=== PATIENT | female | born 1930 | race Caucasian/White ===

== ENCOUNTER 2016-11-16 07:12 | Emergency (ER) | payer MEDICARE ==
[2016-11-16] MEDS ORDERED: LIDOCAINE 5% (700 MG) TRANSDERMAL ADH..PATCH TP ONE (08:58)
--- NOTE | 2016-11-16 10:00 | ER Document Report ---
ED General - General Chief Complaint: Hip Pain Stated Complaint: FALL/HIP PAIN TRAVEL OUTSIDE OF THE [place] IN LAST 30 DAYS: No - HPI Patient complains to provider of: right hip pain Notes: Patient coming in for evaluation of right hip pain patient states she fell approximately 2-3 weeks ago increased it pain in her last to 3 days. Patient states no loss with a cane having difficulty in intubation at this time. Patient otherwise denies any other injuries. - Related Data Allergies/Adverse Reactions: Influenza Virus Vaccines [Influenza Virus Vaccine] Allergy (Intermediate, Verified 11/16/11 08:53) violently ill pneumococcal vaccine [Pneumococcal Vaccine] Allergy (Intermediate, Verified 15/09 08:53) violently ill Sulfa (Sulfonamide Antibiotics) Allergy (Intermediate, Verified 11/16/11 08:53) tound splits open Penicillins Allergy (Mild, Verified 11/16/11 08:53) Hives Past Medical History - Social History Smoking Status: Unknown if Ever Smoked Family History: Reviewed & Not Pertinent - Past Medical History Cardiac Medical History: Reports: Hx Coronary Artery Disease, Hx Hypertension Denies: Hx Atrial Fibrillation, Hx Congestive Heart Failure, Hx Heart Attack , Hx Hypercholesterolemia, Hx Peripheral Vascular Disease, Hx Heart Murmur Pulmonary Medical History: Denies: Hx Tuberculosis Renal/ Medical History: Reports: Hx Kidney Stones Musculoskeltal Medical History: Denies Hx Arthritis, Denies Hx Fibromyalgia, Denies Hx Muscular Dystrophy Traumatic Medical History: Reports: Hx Fractures - left hip x 1 yr Past Surgical History: Reports: Hx Pacemaker - Immunizations Hx Diphtheria, Pertussis, Tetanus Vaccination: Yes Review of Systems - Review of Systems Constitutional: No symptoms reported EENT: No symptoms reported Cardiovascular: No symptoms reported Respiratory: No symptoms reported Gastrointestinal: No symptoms reported Genitourinary: No symptoms reported Female Genitourinary: No symptoms reported Musculoskeletal: Other - Right hip pain Skin: No symptoms reported Hematologic/Lymphatic: No symptoms reported Neurological/Psychological: No symptoms reported Physical Exam - Vital signs Vitals: Resp 16 11/16/16 07:18 Interpretation: Normal - General General appearance: Appears well, Alert - HEENT Head: Normocephalic, Atraumatic Eyes: Normal Pupils: PERRL - Respiratory Respiratory status: No respiratory distress Chest status: Nontender Breath sounds: Normal Chest palpation: Normal - Cardiovascular Rhythm: Regular Heart sounds: Normal auscultation Murmur: No - Abdominal Inspection: Normal Distension: No distension Bowel sounds: Normal Tenderness: Nontender Organomegaly: No organomegaly - Back Back: Normal, Nontender - Extremities General upper extremity: Normal inspection, Nontender, Normal color, Normal ROM , Normal temperature General lower extremity: Normal inspection, Nontender, Normal color, Normal ROM , Normal temperature, Normal weight bearing. No: Che's sign - Neurological Neuro grossly intact: Yes Cognition: Normal Orientation: AAOx4 [place] Coma Scale Eye Opening: Spontaneous [place] Coma Scale Verbal: Oriented [place] Coma Scale Motor: Obeys Commands [place] Coma Scale Total: 15 Speech: Normal Motor strength normal: LUE, RUE, LLE, RLE Sensory: Normal - Psychological Associated symptoms: Normal affect, Normal mood - Skin Skin Temperature: Warm Skin Moisture: Dry Skin Color: Normal Course - Re-evaluation Re-evalutation: 11/16/16 15:21 X-rays negative patient was able ambulate with assistance. Will prescribe the patient a walker pain patches and Tylenol for home for pain control. Patient agrees as planned discharged home - Vital Signs Vital signs: Temp Pulse Resp BP Pulse Ox 98.0 F 70 16 158/72 H 97 11/16/16 10:13 11/16/16 10:13 11/16/16 10:13 11/16/16 10:13 11/16/16 10:13 Discharge - Discharge Clinical Impression: Right hip pain Condition: Good Disposition: HOME, SELF-CARE Instructions: Contusion ([facility]) Additional Instructions: At this time your evaluation is negative for any signs of fracture. More likely has a contusion of the right hip. We will send you home with a prescription for a walker. You may continue to take Tylenol for pain. I will also prescribe you Lidoderm patches for your pain control. Please follow-up with your primary care physician. Prescriptions: Lidocaine [Lidoderm 5% (700 mg) Transdermal Patch] 1 patch TP DAILY #30 adh..patch Walker [Ultra-Light Rollator] 1 each MC DAILY #1 each Referrals: ELO MARIN MD [Primary Care Provider] - Follow up in 3-5 days
[2016-11-16 10:32] VITALS: BP 158/72
== END 2016-11-16 10:13 | disposition home or self-care (01) ==
LOC: ER 07:12
DX: M25.551 Pain in right hip (principal); I25.10 Atherosclerotic heart disease of native coronary artery without angina pectoris; I10 Essential (primary) hypertension; Z88.2 Allergy status to sulfonamides; Z88.0 Allergy status to penicillin; Z88.7 Allergy status to serum and vaccine; Z87.442 Personal history of urinary calculi
CPT/HCPCS: 99283

== ENCOUNTER → 2016-11-26 | Outpatient (CLI) | payer MEDICARE | LOC: RAD 10:33 | PROVIDERS: ATTEND Orthopaedic Surgery | DX: T14.8 Other injury of unspecified body region (principal); M81.0 Age-related osteoporosis without current pathological fracture | CPT/HCPCS: 78306; A9503; Q9969 ==

== ENCOUNTER 2016-12-23 07:44 | Day surgery (SDC) | payer MEDICARE ==
[2016-12-23 08:44] LABS: PROTHROMBIN TIME 13.5 SEC (11.4-15.4)
[2016-12-23 08:45] LABS: PARTIAL THROMBOPLASTIN TIME 36.4 SEC (23.5-35.8)
[2016-12-23 14:41] VITALS: BP 183/71
== END 2016-12-23 14:10 | disposition home or self-care (01) ==
LOC: RAD 07:44
PROVIDERS: ATTEND Orthopaedic Surgery
PROC: B01BYZZ Fluoroscopy of Spinal Cord using Other Contrast (ICD-10-PCS; principal; 2016-12-23)
DX: M48.06 Spinal stenosis, lumbar region (principal); M43.16 Spondylolisthesis, lumbar region; Z79.01 Long term (current) use of anticoagulants; F17.210 Nicotine dependence, cigarettes, uncomplicated; Z79.82 Long term (current) use of aspirin; Z88.0 Allergy status to penicillin; Z79.899 Other long term (current) drug therapy
CPT/HCPCS: 36415; 72132; 72265; 85610; 85730

== ENCOUNTER 2017-09-03 17:54 | Inpatient (IN) | payer MEDICARE ==
[2017-09-03] MEDS ORDERED: NITROGLYCERIN/D5W 50 MG/250 ML RTUINJ IV PRN (18:04)
[2017-09-03] MEDS ORDERED: FUROSEMIDE INJ/PF 20 MG/2 ML SDV IV ONE (18:05)
[2017-09-03 18:26] LABS: PROTHROMBIN TIME 13.2 SEC (11.4-15.4)
[2017-09-03 18:27] LABS: PARTIAL THROMBOPLASTIN TIME 35.4 SEC (23.5-35.8)
[2017-09-03 18:34] LABS: ABSOLUTE BASOPHILS # (AUTO) 0.1 10^3/uL (0.0-0.2); ABSOLUTE EOSINOPHILS # (AUTO) 0.2 10^3/uL (0.0-0.6); ABSOLUTE LYMPHOCYTES (AUTO) 2.2 10^3/uL (0.5-4.7); ABSOLUTE MONOCYTES (AUTO) 1.6 10^3/uL (0.1-1.4); ABSOLUTE NEUT (AUTO) 8.8 10^3/uL (1.7-8.2); BASOPHILS % (AUTO) 0.9 % (0-2); EOSINOPHILS % (AUTO) 1.4 % (0-6); HEMATOCRIT 49.8 % (36.0-47.0); HEMOGLOBIN 16.6 g/dL (12.0-15.5); LYMPHOCYTES % (AUTO) 16.9 % (13-45); MEAN CORPUSCULAR HEMOGLOBIN 28.8 pg (27.0-33.4); MEAN CORPUSCULAR HGB CONC 33.3 g/dL (32.0-36.0); MEAN CORPUSCULAR VOLUME 87 fl (80-97); MONOCYTES % (AUTO) 12.7 % (3-13); RED BLOOD COUNT 5.76 10^6/uL (3.72-5.28); SEGMENTED NEUTROPHILS % (AUTO) 68.1 % (42-78); WHITE BLOOD COUNT 12.9 10^3/uL (4.0-10.5)
[2017-09-03 18:37] LABS: ALANINE AMINOTRANSFERASE 20 U/L (9-52); ALBUMIN 4.2 g/dL (3.5-5.0); ALKALINE PHOSPHATASE 96 U/L (38-126); ANION GAP 13 (5-19); ASPARTATE AMINO TRANSFERASE 23 U/L (14-36); BILIRUBIN,DIRECT 0.6 mg/dL (0.0-0.4); BILIRUBIN,TOTAL 0.8 mg/dL (0.2-1.3); BLOOD UREA NITROGEN 12 mg/dL (7-20); CALCIUM 9.1 mg/dL (8.4-10.2); CARBON DIOXIDE 29 mmol/L (22-30); CHLORIDE 102 mmol/L (98-107); CREATINE KINASE 42 U/L (30-135); CREATININE RESULT 0.81 mg/dL (0.52-1.25); GLUCOSE 96 mg/dL (75-110); LIPASE 16.3 U/L (23-300); POTASSIUM 3.6 mmol/L (3.6-5.0); SODIUM 143.7 mmol/L (137-145); TOTAL PROTEIN 7.8 g/dL (6.3-8.2)
[2017-09-03 18:48] LABS: TROPONIN I 0.013 ng/mL
[2017-09-03 18:56] LABS: VENOUS BLOOD BASE EXCESS 3.1 mmol/L; VENOUS BLOOD PCO2 54.4 mmHg (35-63); VENOUS BLOOD PH 7.36 (7.30-7.42)
--- NOTE | 2017-09-03 19:22 | RADIOLOGY REPORT (SQ) ---
EXAM DESCRIPTION: CHEST SINGLE VIEW COMPLETED DATE/TIME: 09/03/2017 7:12 pm REASON FOR STUDY: SOB COMPARISON: 12/13/2011 NUMBER OF VIEWS: One view. TECHNIQUE: Single frontal radiographic view of the chest acquired. LIMITATIONS: Positioning. FINDINGS: LUNGS AND PLEURA: No opacities, masses or pneumothorax. No pleural effusion. Attenuated bl ood vessels and flattened mohit-diaphragms. MEDIASTINUM AND HILAR STRUCTURES: No masses. Contour normal. HEART AND VASCULAR STRUCTURES: Heart normal in size. Normal vasculature. BONES: No acute findings. HARDWARE: Stable position of pacemaker. OTHER: No other significant finding. IMPRESSION: COPD. NO ACUTE RADIOGRAPHIC FINDING IN THE CHEST. TECHNICAL DOCUMENTATION: JOB ID: [id number] [employer]- All Rights Reserved
--- NOTE | 2017-09-03 19:25 | ER Document Report ---
ED Respiratory Problem - General Chief Complaint: Breathing Difficulty Stated Complaint: DIFFICULTY BREATHING,CONGESTION Time Seen by Provider: 09/03/17 18:03 Notes: The patient is an 87-year-old female, past medical history CHF with AICD, COPD, hypertension, chronic abdominal hernia, presents from her primary care physician 's office, Dr. Joyner, with increased work of breathing and peripheral edema. When EMS arrived, she was tripoding and satting in the low 80's. She was placed on CPAP after 2 sublingual nitros and Nitropaste were given. Patient takes 20 mg of Lasix daily, but she is having increased peripheral edema , dyspnea on exertion and orthopnea over the past several days. She is also having wheezing during this same time. Patient denies fevers, hemoptysis, back pain, chest pain, numbness, tingling, headache, nausea, vomiting or abdominal pain. TRAVEL OUTSIDE OF THE [place] IN LAST 30 DAYS: No - Related Data Allergies/Adverse Reactions: Influenza Virus Vaccines [Influenza Virus Vaccine] Allergy (Intermediate, Verified 09/03/17 18:23) violently ill pneumococcal vaccine [Pneumococcal Vaccine] Allergy (Intermediate, Verified 03/15 18:23) violently ill Sulfa (Sulfonamide Antibiotics) Allergy (Intermediate, Verified 09/03/17 18:23) tound splits open Penicillins Allergy (Mild, Verified 09/03/17 18:23) Hives Past Medical History - General Information source: Patient - Social History Smoking Status: Unknown if Ever Smoked Family History: Reviewed & Not Pertinent - Past Medical History Cardiac Medical History: Reports: Hx Coronary Artery Disease, Hx Hypertension Denies: Hx Atrial Fibrillation, Hx Congestive Heart Failure, Hx Heart Attack , Hx Hypercholesterolemia, Hx Peripheral Vascular Disease, Hx Heart Murmur Pulmonary Medical History: Denies: Hx Asthma, Hx Bronchitis, Hx COPD, Hx Pneumonia, Hx Tuberculosis Neurological Medical History: Denies: Hx Cerebrovascular Accident, Hx Seizures Renal/ Medical History: Reports: Hx Kidney Stones Musculoskeltal Medical History: Reports Hx Arthritis, Denies Hx Fibromyalgia, Denies Hx Muscular Dystrophy Traumatic Medical History: Reports: Hx Fractures - left hip x 1 yr Past Surgical History: Reports: Hx Pacemaker - Immunizations Hx Diphtheria, Pertussis, Tetanus Vaccination: Yes Review of Systems - Review of Systems Notes: REVIEW OF SYSTEMS: CONSTITUTIONAL: -fevers, -chills EENT: -eye pain, -difficulty swallowing, -nasal congestion CARDIOVASCULAR:-chest pain, -syncope. RESPIRATORY: +cough, +SOB GASTROINTESTINAL: -abdominal pain, - nausea, -vomiting, -diarrhea GENITOURINARY: -dysuria, -hematuria MUSCULOSKELETAL: -back pain, -neck pain SKIN: -rash or skin lesions. HEMATOLOGIC: -easy bruising or bleeding. LYMPHATIC: -swollen, enlarged glands. NEUROLOGICAL: -altered mental status or loss of consciousness, -headache, - neurologic symptoms PSYCHIATRIC: -anxiety, -depression. ALL OTHER SYSTEMS REVIEWED AND NEGATIVE. Physical Exam - Vital signs Vitals: Resp Pulse Ox 19 96 09/03/17 18:07 09/03/17 18:07 - Notes Notes: PHYSICAL EXAMINATION: GENERAL: Mild respiratory distress. HEAD: Atraumatic, normocephalic. EYES: Pupils equal round and reactive to light, extraocular movements intact, sclera anicteric, conjunctiva are normal. ENT: nares patent, oropharynx clear without exudates. Moist mucous membranes. NECK: Normal range of motion, supple without lymphadenopathy LUNGS: Tachypnea. Rales up to mid-lungs. Diffuse wheezing. HEART: Regular rate and rhythm without murmurs ABDOMEN: Soft, nontender, normoactive bowel sounds. No guarding, no rebound. No masses appreciated. EXTREMITIES: 3+ pitting edema in B/L legs up to mid-thighs. Chronic venous stasis changes in legs. Strong distal pulses. NEUROLOGICAL: Cranial nerves grossly intact. Normal speech, normal gait. Normal sensory and motor exams. PSYCH: Normal mood, normal affect. Course - Re-evaluation Re-evalutation: Patient seen immediately on arrival and switched from CPAP to BiPAP. She appears fluid overloaded with 3+ peripheral edema and bilateral rales on exam. She was placed on a nitro drip and given IV Lasix with improvement of her respiratory status. Pt also has diffuse wheezing, which resolved afetr Duonebs and steroids. No fevers or infiltrates on CXR to suggest pneumonia, although patient does have a leukocytosis. Patient has no chest pain and no ischemic changes on EKG. Patient requires inpatient admission for further evaluation and treatment of her CHF and COPD exacerbation. Her primary care physician is Dr. Joyner. With the son at bedside, patient confirms that she is Full Code. 09/03/17 20:[address] Moore and will admit patient to [facility] as Inpatient. Will attempt to wean patient off BiPap now that her respiratory status has improved. - Vital Signs Vital signs: Temp Pulse Resp BP Pulse Ox 14 156/105 H 96 09/03/17 19:34 09/03/17 19:34 09/03/17 19:34 - Laboratory Result Diagrams: 09/03/17 18:10 09/03/17 18:10 Laboratory results interpreted by me: 09/03/17 09/03/17 09/03/17 18:10 18:10 18:10 WBC 12.9 H RBC 5.76 H Hgb 16.6 H Hct 49.8 H Absolute Neutrophils 8.8 H Absolute Monocytes 1.6 H Direct Bilirubin 0.6 H NT-Pro-B Natriuret Pep 2030 H Lipase 16.3 L - Diagnostic Test Radiology reviewed: Image reviewed, Reports reviewed Radiology results interpreted by me: CXR: NAD. COPD changes. - EKG Interpretation by Me EKG shows normal: Sinus rhythm, Intervals, QRS Complexes, ST-T Waves Rate: Normal [place]/QRS: Right axis deviation Critical Care Note - Critical Care Note Total time excluding time spent on procedures (mins): 35 Discharge - Discharge Clinical Impression: COPD exacerbation CHF exacerbation Qualifiers: Congestive heart failure type: unspecified congestive heart failure type Qualified Code(s): I50.9 - Heart failure, unspecified Leukocytosis Qualifiers: Leukocytosis type: unspecified Qualified Code(s): D72.829 - Elevated white blood cell count, unspecified Condition: Stable Disposition: ADMITTED INPATIENT Admitting Provider: [facility] Unit Admitted: Telemetry
[2017-09-03] MEDS ORDERED: IPRATROPIUM/ALBUTEROL 0.5-2.5 MG/3 ML AMPUL NEB ONE (19:26)
[2017-09-03] MEDS ORDERED: METHYLPREDNISOLONE INJ 125 MG/2 ML SDV IV ONE (19:27)
[2017-09-03] MEDS ORDERED: ROPINIROLE HCL 0.25 MG TABLET PO PRN (20:13)
[2017-09-03] MEDS ORDERED: HYDRALAZINE HCL INJ/PF 20 MG/1 ML SDV IV PRN (20:13)
[2017-09-03] MEDS ORDERED: MAG HYDROX/AL HYDROX/SIMETH SUSP 30 ML UDCUP PO PRN (20:14)
--- NOTE | 2017-09-03 20:30 | EKG REPORT ---
SEVERITY:- ABNORMAL ECG - ATRIAL-PACED COMPLEXES MINIMAL ST DEPRESSION, LATERAL LEADS BORDERLINE PROLONGED QT INTERVAL APC : Confirmed by: Monique Dow 03-Sep-2017 20:30:01
[2017-09-03] MEDS ORDERED: DILTIAZEM HCL 60 MG TABLET PO ONE (20:42)
[2017-09-03] MEDS ORDERED: VANCOMYCIN HCL 1,000 MG in DEXTROSE 5%-WATER 250 ML IV ONE (20:55)
[2017-09-03] MEDS ORDERED: CHLORPHENIRAMINE MALEATE 4 MG TABLET PO ONE (21:00)
[2017-09-03] MEDS ORDERED: VANCOMYCIN HCL 0 MG in DEXTROSE 5%-WATER 250 ML IV NR (21:00)
[2017-09-03] MEDS ORDERED: VANCOMYCIN HCL INJ 1000 MG VIAL ONE (21:37)
[2017-09-03] MEDS ORDERED: VANCOMYCIN HCL INJ 500 MG VIAL ONE (21:37)
[2017-09-03] MEDS: HEPARIN SOD (PORCINE) 5,000 UNIT/ML 1 ML SYRINGE SUBCUT SCH (21:50)
[2017-09-03] MEDS: FLUTICASONE NASAL SPRAY 50 MCG/SPRY 120 SPRAY/16 GM NASL SCH (21:55)
[2017-09-03] MEDS: VANCOMYCIN HCL 400 MG in DEXTROSE 5%-WATER 100 ML IV SCH (21:57)
[2017-09-03] MEDS ORDERED: AZITHROMYCIN 500 MG in DEXTROSE 5%-WATER 250 ML IV SCH (22:00)
[2017-09-03] MEDS ORDERED: HEPARIN SOD (PORCINE) 5,000 UNIT/ML 1 ML SYRINGE SUBCUT SCH (22:00)
[2017-09-04 00:53] LABS: CREATINE KINASE MB 1.3 ng/mL (<4.55); TROPONIN I 0.015 ng/mL
[2017-09-04] MEDS: IPRATROPIUM/ALBUTEROL 0.5-2.5 MG/3 ML AMPUL NEB SCH ×4 (01:42→20:14)
[2017-09-04] MEDS: HEPARIN SOD (PORCINE) 5,000 UNIT/ML 1 ML SYRINGE SUBCUT SCH ×3 (05:58→21:48)
--- NOTE | 2017-09-04 06:10 | PDOC H&P ---
History of Present Illness Admission Date/PCP: 09/03/17 20:22 Patient complains of: Shortness of breath History of Present Illness: JAIR WHITE is a 87 year old female with a history of congestive heart failure with AICD, COPD, hypertension, ventral hernia, venous stasis and chronic pain. Patient presents after approximately 7 days of shortness of breath, nonproductive cough and bilateral leg edema and erythema. She denies chest pain nausea vomiting or diaphoresis. In the emergency room she is found to have uncontrolled sinus tachycardia in the 120s, crackles on lung auscultation, and right leg ulcer with erythema. She started on DuoNeb, BiPAP and IV Lasix and referred to the hospitalist for admission. Patient denies chest pain and admits feeling better on BiPAP. She is unaware of any recent change in medications. Patient does state she is essentially immobile and spends day and night in her recliner. Past Medical History Cardiac Medical History: Reports: Coronary Artery Disease, Hypertension Denies: Atrial Fibrillation, Congestive Heart Failure, Myocardial Infarction , Hyperlipidema, Peripheral Vascular Disease, Heart Murmur Pulmonary Medical History: Reports: Bronchitis, Chronic Obstructive Pulmonary Disease (COPD) Denies: Asthma, Pneumonia, Tuberculosis Neurological Medical History: Denies: Seizures Musculoskeltal Medical History: Reports: Arthritis Denies: Fibromyalgia Psychiatric Medical History: Denies: Alcohol Dependency, Substance Abuse, Tobacco Dependency Hematology: Denies: Anemia Past Surgical History Past Surgical History: Reports: Pacemaker Denies: Amputation Social History Information Source: Patient Smoking Status: Former Smoker Frequency of Alcohol Use: None Hx Recreational Drug Use: No Hx Prescription Drug Abuse: No - Advance Directive Resuscitation Status: Full Code Family History Family History: CAD, COPD Parental Family History Reviewed: Yes Children Family History Reviewed: Yes Sibling(s) Family History Reviewed.: Yes Medication/Allergy Home Medications: Gabapentin [Neurontin 100 mg Capsule] 100 mg PO Q8 09/03/17 Oxycodone HCl [Oxycodone HCl 10 MG Tablet] 10 mg PO Q6 09/03/17 Allergies/Adverse Reactions: Influenza Virus Vaccines [Influenza Virus Vaccine] Allergy (Intermediate, Verified 09/03/17 18:23) violently ill pneumococcal vaccine [Pneumococcal Vaccine] Allergy (Intermediate, Verified 03/15 18:23) violently ill Sulfa (Sulfonamide Antibiotics) Allergy (Intermediate, Verified 09/03/17 18:23) tound splits open Penicillins Allergy (Mild, Verified 09/03/17 18:23) Hives Review of Systems Constitutional: PRESENT: as per HPI, fatigue, weakness, weight gain. ABSENT: fever(s) Eyes: ABSENT: visual disturbances Ears: ABSENT: hearing changes Cardiovascular: ABSENT: chest pain, dyspnea on exertion, edema, orthropnea, palpitations Respiratory: PRESENT: as per HPI, cough, dyspnea. ABSENT: hemoptysis, sputum Gastrointestinal: ABSENT: abdominal pain, constipation, diarrhea, hematemesis, hematochezia, nausea, vomiting Genitourinary: ABSENT: dysuria, hematuria Musculoskeletal: PRESENT: muscle weakness. ABSENT: joint swelling Integumentary: PRESENT: erythema, other - Bilateral +2 edema, right leg with erythema and 1 cm ulcer to the lateral and 2 cm x 2 cm ulcer to the posterior leg. ABSENT: rash, wounds Neurological: ABSENT: abnormal gait, abnormal speech, confusion, dizziness, focal weakness, syncope Psychiatric: ABSENT: anxiety, depression, homidical ideation, suicidal ideation Endocrine: ABSENT: cold intolerance, heat intolerance, polydipsia, polyuria Hematologic/Lymphatic: ABSENT: easy bleeding, easy bruising Physical Exam Vital Signs: Temp Pulse Resp BP Pulse Ox 98.6 F 74 22 H 154/65 H 95 09/04/17 00:25 09/04/17 02:00 09/04/17 04:00 09/04/17 00:25 09/04/17 00:25 Intake & Output 09/02/17 09/03/17 09/04/17 11:59 11:59 11:59 Weight 45.35 kg General appearance: PRESENT: cooperative, disheveled, mild distress Head exam: PRESENT: atraumatic, normocephalic Eye exam: PRESENT: conjunctiva pink, EOMI, PERRLA. ABSENT: scleral icterus Ear exam: PRESENT: normal external ear exam Mouth exam: PRESENT: moist, tongue midline Neck exam: ABSENT: carotid bruit, JVD, lymphadenopathy, thyromegaly Respiratory exam: PRESENT: accessory muscle use, crackles, decreased breath sounds, prolonged expiratory phas, rales, symmetrical, tachypnea Cardiovascular exam: PRESENT: gallop, +S1, +S2, tachycardia. ABSENT: systolic murmur Pulses: PRESENT: normal dorsalis pedis pul Vascular exam: PRESENT: normal capillary refill GI/Abdominal exam: PRESENT: hypoactive bowel sounds, normal bowel sounds, soft. ABSENT: distended, guarding, mass, organolmegaly, rebound, tenderness Rectal exam: PRESENT: deferred Extremities exam: PRESENT: tenderness, +2 edema, other - Bilateral +2 edema, right leg with erythema and 1 cm ulcer to the lateral and 2 cm x 2 cm ulcer to the posterior leg Neurological exam: PRESENT: alert, awake, oriented to person, oriented to place , oriented to time, oriented to situation, CN II-XII grossly intact. ABSENT: motor sensory deficit Psychiatric exam: PRESENT: appropriate affect, normal mood. ABSENT: homicidal ideation, suicidal ideation Skin exam: PRESENT: other - Bilateral +2 edema, right leg with erythema and 1 cm ulcer to the lateral and 2 cm x 2 cm ulcer to the posterior leg Results Laboratory Results: 09/04/17 00:18 TSH 0.76 09/04/17 09/04/17 00:18 00:18 Creatine Kinase 34 CK-MB (CK-2) 1.30 Troponin I 0.015 Impressions: Chest X-Ray 09/03/17 18:03 IMPRESSION: COPD. NO ACUTE RADIOGRAPHIC FINDING IN THE CHEST. Assessment & Plan - Diagnosis (1) CHF exacerbation Qualifiers: Congestive heart failure type: unspecified congestive heart failure type Qualified Code(s): I50.9 - Heart failure, unspecified Is this a current diagnosis for this admission?: Yes Plan: Likely secondary to cellulitis and uncontrolled heart rate, telemetry admission , BiPAP, rate control and gentle diuresis. Consider 2D echo. (2) COPD exacerbation Is this a current diagnosis for this admission?: Yes Plan: Secondary #1, rate control, diuresis, BiPAP, flutter valve, albuterol and Atrovent. (3) Venous stasis Is this a current diagnosis for this admission?: Yes Plan: Elevation, DANNY stockings and diuresis. (4) Cellulitis of right leg Is this a current diagnosis for this admission?: Yes Plan: Comp gated by severe venous stasis, vancomycin follow-up CBC, blood and wound culture - Time Time Spent: 50 to 70 Minutes - Inpatient Certification Medical Necessity: Need Close Monitoring Due to Risk of Patient Decompensation
[2017-09-04 06:38] LABS: HEMATOCRIT 44.5 % (36.0-47.0); HEMOGLOBIN 14.7 g/dL (12.0-15.5); HGB HCT DIFFERENCE -0.4; MEAN CORPUSCULAR HEMOGLOBIN 28.2 pg (27.0-33.4); MEAN CORPUSCULAR VOLUME 85 fl (80-97); RED BLOOD COUNT 5.21 10^6/uL (3.72-5.28); RED CELL DISTRIBUTION WIDTH 14.3 % (11.5-14.0); WHITE BLOOD COUNT 19.9 10^3/uL (4.0-10.5)
[2017-09-04 06:46] LABS: ANION GAP 7 (5-19); BLOOD UREA NITROGEN 15 mg/dL (7-20); CALCIUM 9.3 mg/dL (8.4-10.2); CARBON DIOXIDE 30 mmol/L (22-30); CHLORIDE 103 mmol/L (98-107); CREATINE KINASE 53 U/L (30-135); CREATININE RESULT 0.74 mg/dL (0.52-1.25); GLUCOSE 203 mg/dL (75-110); POTASSIUM 3.4 mmol/L (3.6-5.0); SODIUM 140.1 mmol/L (137-145)
[2017-09-04 07:06] LABS: CREATINE KINASE MB 1.45 ng/mL (<4.55); TROPONIN I 0.026 ng/mL
[2017-09-04 07:41] LABS: BASOPHILS % (MANUAL) 0 % (0-2); EOSINOPHILS % (MANUAL) 0 % (0-6); LYMPHOCYTES % (MANUAL) 3 % (13-45); TOTAL CELLS COUNTED 100
[2017-09-04 07:42] LABS: TOXIC GRANULATION SLIGHT
[2017-09-04 07:43] LABS: ANISOCYTOSIS SLIGHT
[2017-09-04] MEDS: FLUTICASONE NASAL SPRAY 50 MCG/SPRY 120 SPRAY/16 GM NASL SCH ×2 (09:57→21:48)
[2017-09-04] MEDS: NITROGLYCERIN 5 MG (0.2 MG/HR) PATCH.TD24 TD SCH (09:57)
[2017-09-04] MEDS: POTASSIUM CHLORIDE 10 MEQ TABLET.SA PO SCH (09:58)
[2017-09-04] MEDS: DOCUSATE SODIUM 100 MG CAPSULE PO SCH (09:59)
[2017-09-04] MEDS ORDERED: FUROSEMIDE INJ/PF 40 MG/4 ML SDV IV SCH (10:00)
[2017-09-04] MEDS ORDERED: ASPIRIN 81 MG TABLET, CHEWABLE PO SCH (10:00)
[2017-09-04] MEDS: GABAPENTIN 100 MG CAPSULE PO SCH ×2 (13:45→21:48)
[2017-09-04 14:19] LABS: CREATINE KINASE MB 1.28 ng/mL (<4.55); TROPONIN I 0.027 ng/mL
--- NOTE | 2017-09-04 17:19 | PDOC PROGRESS REPORT ---
Subjective Progress Note for:: 09/04/17 Subjective:: The patient was seen this afternoon for follow-up of CHF exacerbation, COPD exacerbation and cellulitis of the bilateral lower legs. She is seen with her and younger son present shortly after leaving the room, I received a phone call from the elder son and was able to update him as well with the patient's request. The patient states that she "feels ready to go home." She tells me that her breathing has much improved, her cough is resolved, and that she feels back to herself. Per nursing, however, the patient did remain on BiPAP throughout the night and most of the day. The patient does report bilateral lower leg tenderness and increased redness as compared to yesterday. She does state that the edema has improved. The patient and family members are interested in home health services when she is ready for discharge. Both of her sons, however, feels that it is time for their parents to be admitted to an assisted living or fci facility and ask for us to assist in researching whether or not this is a viable option for her and her . Preferably they would like the their parents to be room together (the patient's is a hospice patient). They have no other questions or concerns at this time. Reason For Visit: COPD EXACERBATION, ACUTE BRONCHITIS, HEART Physical Exam Vital Signs: Temp Pulse Resp BP Pulse Ox 98.5 F 91 22 H 159/68 H 98 09/04/17 16:00 09/04/17 16:00 09/04/17 16:48 09/04/17 16:00 09/04/17 16:48 Intake & Output 09/03/17 09/04/17 09/05/17 06:59 06:59 06:59 Intake Total 240 Output Total 350 Balance -110 Weight 45.5 kg 45.5 kg General appearance: PRESENT: no acute distress, thin, well-developed, well- nourished Head exam: PRESENT: atraumatic, normocephalic Eye exam: PRESENT: conjunctiva pink, EOMI, PERRLA. ABSENT: scleral icterus Ear exam: PRESENT: normal external ear exam Mouth exam: PRESENT: moist, tongue midline Teeth exam: PRESENT: poor dentation Neck exam: ABSENT: carotid bruit, JVD, lymphadenopathy, thyromegaly Respiratory exam: PRESENT: clear to auscultation jerry, symmetrical, unlabored. ABSENT: rales, rhonchi, wheezes Cardiovascular exam: PRESENT: RRR, +S1, +S2. ABSENT: diastolic murmur, rubs, systolic murmur Pulses: PRESENT: normal dorsalis pedis pul Vascular exam: PRESENT: other - Poor capillary refill to the bilateral toes GI/Abdominal exam: PRESENT: normal bowel sounds, soft. ABSENT: distended, guarding, mass, organolmegaly, rebound, tenderness Rectal exam: PRESENT: deferred Extremities exam: PRESENT: full ROM. ABSENT: calf tenderness, clubbing, pedal edema Neurological exam: PRESENT: alert, awake, oriented to person, oriented to place , oriented to time, oriented to situation, CN II-XII grossly intact. ABSENT: motor sensory deficit Psychiatric exam: PRESENT: appropriate affect, normal mood. ABSENT: homicidal ideation, suicidal ideation Skin exam: PRESENT: dry, erythema - Bilateral erythema to the lower legs., warm , other - Chronic venous stasis changes noted to bilateral lower extremities. Stasis ulcers noted to the right lateral lower leg.. ABSENT: cyanosis, rash Results Laboratory Results: 09/04/17 06:15 09/04/17 06:15 09/04/17 09/04/17 09/04/17 00:18 06:15 06:15 WBC 19.9 H RBC 5.21 Hgb 14.7 Hct 44.5 MCV 85 MCH 28.2 MCHC 33.0 RDW 14.3 H Plt Count 285 Seg Neutrophils % Not Reportable Lymphocytes % Not Reportable Monocytes % Not Reportable Eosinophils % Not Reportable Basophils % Not Reportable Absolute Neutrophils Not Reportable Absolute Lymphocytes Not Reportable Absolute Monocytes Not Reportable Absolute Eosinophils Not Reportable Absolute Basophils Not Reportable Sodium 140.1 Potassium 3.4 L Chloride 103 Carbon Dioxide 30 Anion Gap 7 BUN 15 Creatinine 0.74 Est GFR ( Amer) > 60 Est GFR (Non-Af Amer) > 60 Glucose 203 H Calcium 9.3 TSH 0.76 09/04/17 09/04/17 09/04/17 00:18 00:18 06:15 Creatine Kinase 34 53 CK-MB (CK-2) 1.30 Troponin I 0.015 09/04/17 09/04/17 09/04/17 06:15 13:00 13:00 Creatine Kinase 57 CK-MB (CK-2) 1.45 1.28 Troponin I 0.026 0.027 Impressions: Chest X-Ray 09/03/17 18:03 IMPRESSION: COPD. NO ACUTE RADIOGRAPHIC FINDING IN THE CHEST. Assessment & Plan - Diagnosis (1) CHF exacerbation Qualifiers: Congestive heart failure type: unspecified congestive heart failure type Qualified Code(s): I50.9 - Heart failure, unspecified Is this a current diagnosis for this admission?: Yes Plan: Improved. The patient was placed on BiPAP overnight and through most of the morning with improvement in respiratory function. Her tachycardia has resolved, and her heart rate is now appropriate at 91. She is maintaining oxygen saturations on 3 L of supplemental oxygen via nasal cannula. Between the emergency department and morning medication administrations, the patient has received 60 mg of IV Lasix and now appears to be well diuresed. Will discontinue IV furosemide at this time and continue to monitor daily weights. May use BiPAP nightly and as needed. The supplemental oxygen as needed to keep O2 sats greater than 88% Echocardiogram has been ordered and is pending at this time. (2) COPD exacerbation Is this a current diagnosis for this admission?: Yes Plan: Secondary to #1. Patient's respiratory status has improved dramatically with diuresis, BiPAP, albuterol and Atrovent. She is currently maintaining oxygen saturations on supplemental oxygen via nasal cannula. She is fully conversational. She did receive 1 dose of Solu-Medrol 125 mg IV while in the emergency department. She is currently receiving vancomycin for treatment of cellulitis. Will hold on additional steroids and antibiotics at this time as the patient has shown significant improvement with more conservative measures. (3) Bilateral cellulitis of lower leg Is this a current diagnosis for this admission?: Yes Plan: Complicated by severe venous stasis. WBCs are elevated to 10.9 today, which may be in part due to Solu-Medrol last night. Blood and wound cultures are pending. We will continue IV vancomycin for coverage of MRSA and narrow antibiotics as cultures result. (4) Leukocytosis Qualifiers: Leukocytosis type: unspecified Qualified Code(s): D72.829 - Elevated white blood cell count, unspecified Plan: WBCs elevated to 19.9 today from 12.9. This may be in part due to having received IV Solu-Medrol while in the emergency department last night. Likely, the patient appears to be improving. We will continue with IV antibiotics as above and trend CBC. (5) Venous stasis Is this a current diagnosis for this admission?: Yes Plan: Elevation and DANNY stockings. Anticipate slight improvement with resolution of CHF exacerbation. Chronic in nature, patient not likely to have meaningful benefit from vascular referral. (6) Debility Is this a current diagnosis for this admission?: Yes Plan: The patient is a frail appearing 87-year-old with comorbid conditions. She currently lives at home with her who is on hospice. Will ask the shutdown planner to assist in determining if placement would be available with an opportunity for her to join her in the same facility. - Time Time Spent with patient: 25-34 minutes Medications reviewed and adjusted accordingly: Yes - Inpatient Certification Based on my medical assessment, after consideration of the patient's comorbidities, presenting symptoms, or acuity I expect that the services needed warrant INPATIENT care.: Yes I certify that my determination is in accordance with my understanding of Medicare's requirements for reasonable and necessary INPATIENT services [42 CFR 412.3e].: Yes Medical Necessity: Significant Comorbidiites Make Outpatient Treatment Too Risky , Need Close Monitoring Due to Risk of Patient Decompensation
[2017-09-04] MEDS: VANCOMYCIN HCL 400 MG in DEXTROSE 5%-WATER 100 ML IV SCH (21:48)
[2017-09-04] MEDS: OXYCODONE HCL IR 5 MG TABLET PO PRN (21:49)
[2017-09-04] MEDS: ENALAPRILAT DIHYDRATE INJ/PF 1.25 MG/1 ML SDV IV PRN (23:14)
[2017-09-05] MEDS: IPRATROPIUM/ALBUTEROL 0.5-2.5 MG/3 ML AMPUL NEB SCH ×5 (02:41→23:59)
[2017-09-05] MEDS: OXYCODONE HCL IR 5 MG TABLET PO PRN ×4 (04:20→22:16)
[2017-09-05] MEDS: HEPARIN SOD (PORCINE) 5,000 UNIT/ML 1 ML SYRINGE SUBCUT SCH ×3 (04:44→22:05)
[2017-09-05] MEDS ORDERED: LACTULOSE SYRUP 20 GM/30 ML UDCUP PO ONE (04:50)
[2017-09-05] MEDS: GABAPENTIN 100 MG CAPSULE PO SCH ×3 (05:17→17:56)
[2017-09-05] MEDS: KETOROLAC TROMETHAMINE INJ/PF 30 MG/1 ML SDV IV PRN ×2 (05:18→18:13)
[2017-09-05] MEDS: ENALAPRILAT DIHYDRATE INJ/PF 1.25 MG/1 ML SDV IV PRN (08:23)
[2017-09-05] MEDS: ACETAMINOPHEN 325 MG TABLET PO PRN ×2 (08:23→22:16)
[2017-09-05 09:35] LABS: ABSOLUTE BASOPHILS # (AUTO) 0.1 10^3/uL (0.0-0.2); ABSOLUTE LYMPHOCYTES (AUTO) 2.1 10^3/uL (0.5-4.7); ABSOLUTE MONOCYTES (AUTO) 1.9 10^3/uL (0.1-1.4); ABSOLUTE NEUT (AUTO) 14.4 10^3/uL (1.7-8.2); BASOPHILS % (AUTO) 0.7 % (0-2); HEMATOCRIT 45.4 % (36.0-47.0); HEMOGLOBIN 15.2 g/dL (12.0-15.5); HGB HCT DIFFERENCE 0.2; LYMPHOCYTES % (AUTO) 11.1 % (13-45); MEAN CORPUSCULAR HEMOGLOBIN 28.7 pg (27.0-33.4); MEAN CORPUSCULAR HGB CONC 33.4 g/dL (32.0-36.0); MEAN CORPUSCULAR VOLUME 86 fl (80-97); MONOCYTES % (AUTO) 10.4 % (3-13); RED BLOOD COUNT 5.28 10^6/uL (3.72-5.28); RED CELL DISTRIBUTION WIDTH 14.4 % (11.5-14.0); SEGMENTED NEUTROPHILS % (AUTO) 77.8 % (42-78); WHITE BLOOD COUNT 18.5 10^3/uL (4.0-10.5)
[2017-09-05 09:49] LABS: ANION GAP 12 (5-19); BLOOD UREA NITROGEN 12 mg/dL (7-20); CALCIUM 8.7 mg/dL (8.4-10.2); CARBON DIOXIDE 28 mmol/L (22-30); CHLORIDE 102 mmol/L (98-107); CREATININE RESULT 0.64 mg/dL (0.52-1.25); GLUCOSE 131 mg/dL (75-110); SODIUM 142.1 mmol/L (137-145)
[2017-09-05] MEDS: ASPIRIN 81 MG TABLET, CHEWABLE PO SCH (10:12)
[2017-09-05] MEDS: POTASSIUM CHLORIDE 10 MEQ TABLET.SA PO SCH (10:12)
[2017-09-05] MEDS: FLUTICASONE NASAL SPRAY 50 MCG/SPRY 120 SPRAY/16 GM NASL SCH ×2 (10:13→22:16)
[2017-09-05] MEDS: NITROGLYCERIN 5 MG (0.2 MG/HR) PATCH.TD24 TD SCH (10:14)
[2017-09-05] MEDS: DOCUSATE SODIUM 100 MG CAPSULE PO SCH (10:17)
[2017-09-05] MEDS: LOSARTAN POTASSIUM 25 MG TABLET PO SCH (11:00)
--- NOTE | 2017-09-05 12:00 | XCELERA REPORT ---
[address] [address] Transthoracic Echocardiogram Report Name: JAIR WHITE Age: 87 yrs Gender: Female : 1930 Patient Status: Inpatient Patient Location: [address] [place], [place] [address] Study Date: 09/04/2017 09:17 AM Height: 59 in Weight: 100 lb BSA: 1.4 m2 Procedure: A two-dimensional transthoracic echocardiogram with color flow and Doppler was performed. Study Quality: Fair. Reason For Study: chf History: CHF. Ordering Physician: NGOZI PADILLA Performed By: Mell Harris Interpretation Summary The left ventricle is normal in size. There is normal left ventricular wall thickness. LV EF is > than 60% Left ventricular systolic function is normal. Doppler measurements suggest impaired left ventricular relaxation, which is associated with grade I/IV or mild diastolic dysfunction The left ventricular wall motion is normal. There is no thrombus. There is no ventricular septal defect visualized. The right ventricle is mildly dilated. The right ventricular systolic function is normal. The right atrium is normal. The left atrial size is normal. The interatrial septum is intact with no evidence for an atrial septal defect. There is no evidence of mitral valve prolapse. There is no vegetation seen on the mitral valve. There is no mitral valve stenosis. There is a trace amount of mitral regurgitation There is no aortic valvular vegetation. There is Aortic Sclerosis without stenosis. There is no LVOT obstruction. No aortic regurgitation is present. There is no tricuspid stenosis. There is a mild amount of tricuspid regurgitation RVSP is 26 to 31 mm of Hg , hence no significant pulmonary hypertension. There is no pulmonic valvular stenosis. There is no pulmonic valvular regurgitation. The aortic root is normal size. The inferior vena cava appeared normal and decreased > 50% with respiration (RAP 5-10 mmHg) There is no pericardial effusion. MMode/2D Measurements & Calculations RVDd: 3.0 cm LVIDd: 3.3 cm FS: 53.4 % Ao root diam: 2.7 cm IVSd: 1.4 cm LVIDs: 1.5 cm EDV(Teich): 42.9 ml LVPWd: 1.1 cm ESV(Teich): 6.3 ml Ao root area: 5.9 cm2 EF(Teich): 85.4 % LA dimension: 2.6 cm LVOT diam: 2.1 cm LVOT area: 3.5 cm2 Doppler Measurements & Calculations MV E max tera: MV P1/2t max tera: Ao V2 max: LV V1 max P.1 cm/sec 66.1 cm/sec 186.2 cm/sec 9.4 mmHg MV A max tera: MV P1/2t: 59.4 msec Ao max PG: LV V1 max: 129.8 cm/sec MVA(P1/2t): 3.7 cm2 13.9 mmHg 153.5 cm/sec MV E/A: 0.51 MV dec slope: DEMETRIO(V,D): 2.8 cm2 326.3 cm/sec2 PA V2 max: TR max tera: 131.3 cm/sec 226.9 cm/sec PA max P.9 mmHgTR max P.6 mmHg Left Ventricle The left ventricle is normal in size. There is normal left ventricular wall thickness. LV EF is > than 60%. Left ventricular systolic function is normal. Doppler measurements suggest impaired left ventricular relaxation, which is associated with grade I/IV or mild diastolic dysfunction. The left ventricular wall motion is normal. There is no thrombus. There is no ventricular septal defect visualized. Right Ventricle The right ventricle is mildly dilated. The right ventricular systolic function is normal. Atria The right atrium is normal. The left atrial size is normal. The interatrial septum is intact with no evidence for an atrial septal defect. Mitral Valve There is mild mitral annular calcification. There is no evidence of mitral valve prolapse. There is no vegetation seen on the mitral valve. There is no mitral valve stenosis. There is a trace amount of mitral regurgitation. Aortic Valve There is no aortic valvular vegetation. There is Aortic Sclerosis without stenosis. There is no LVOT obstruction. No aortic regurgitation is present. Tricuspid Valve There is no tricuspid stenosis. There is a mild amount of tricuspid regurgitation. RVSP is 26 to 31 mm of Hg , hence no significant pulmonary hypertension. Pulmonic Valve There is no pulmonic valvular stenosis. There is no pulmonic valvular regurgitation. Great Vessels The aortic root is normal size. The inferior vena cava appeared normal and decreased > 50% with respiration (RAP 5-10 mmHg). Effusions There is no pericardial effusion. : NGOZI PADILLA > Danii Thompson
--- NOTE | 2017-09-05 14:17 | PDOC PROGRESS REPORT ---
Subjective Progress Note for:: 09/05/17 Subjective:: The patient was seen this morning for follow-up of CHF exacerbation, COPD exacerbation and cellulitis of the bilateral lower legs. Upon entering the room , the patient is found sleeping. She wakes easily with name call and gentle shake, however, falls quickly back to sleep. She does briefly tell me that her breathing is "fine" and denies chest pain, palpitations, dyspnea, orthopnea, and cough. She expresses no questions or concerns. Nursing does report that the patient has called out several times to report bilateral foot pain, especially of her toes. Reason For Visit: COPD EXACERBATION, ACUTE BRONCHITIS, HEART Physical Exam Vital Signs: Temp Pulse Resp BP Pulse Ox 98.0 F 66 18 155/55 H 97 09/05/17 11:44 09/05/17 11:44 09/05/17 11:44 09/05/17 11:44 09/05/17 11:44 Intake & Output 09/04/17 09/05/17 09/06/17 06:59 06:59 06:59 Intake Total 240 849 Output Total 350 500 Balance -110 349 Weight 45.5 kg 45.5 kg General appearance: PRESENT: no acute distress, disheveled, hard of hearing, thin, well-developed Head exam: PRESENT: atraumatic, normocephalic Eye exam: PRESENT: conjunctiva pink, EOMI, PERRLA. ABSENT: scleral icterus Ear exam: PRESENT: normal external ear exam Mouth exam: PRESENT: moist, tongue midline Teeth exam: PRESENT: poor dentation Neck exam: ABSENT: carotid bruit, JVD, lymphadenopathy, thyromegaly Respiratory exam: PRESENT: clear to auscultation jerry, symmetrical, unlabored, other - Supplemental oxygen 2lpm via NC. ABSENT: rales, rhonchi, wheezes Cardiovascular exam: PRESENT: RRR. ABSENT: diastolic murmur, rubs, systolic murmur Pulses: PRESENT: normal dorsalis pedis pul Vascular exam: ABSENT: normal capillary refill - Delayed capillary refill bilateral feet GI/Abdominal exam: PRESENT: normal bowel sounds, soft. ABSENT: distended, guarding, mass, organolmegaly, rebound, tenderness Rectal exam: PRESENT: deferred Extremities exam: PRESENT: full ROM. ABSENT: calf tenderness, clubbing, pedal edema Neurological exam: PRESENT: alert, awake, oriented to person, oriented to place , oriented to time, oriented to situation, CN II-XII grossly intact. ABSENT: motor sensory deficit Psychiatric exam: PRESENT: appropriate affect, normal mood. ABSENT: homicidal ideation, suicidal ideation Skin exam: PRESENT: dry, warm. ABSENT: cyanosis, erythema - BLE, intact - Venous stasis ulcers to Rt lateral lower extremity, rash Results Laboratory Results: 09/05/17 09:25 09/05/17 09:25 09/05/17 09/05/17 09:25 09:25 WBC 18.5 H RBC 5.28 Hgb 15.2 Hct 45.4 MCV 86 MCH 28.7 MCHC 33.4 RDW 14.4 H Plt Count 336 Seg Neutrophils % 77.8 Lymphocytes % 11.1 L Monocytes % 10.4 Eosinophils % 0.0 Basophils % 0.7 Absolute Neutrophils 14.4 H Absolute Lymphocytes 2.1 Absolute Monocytes 1.9 H Absolute Eosinophils 0.0 Absolute Basophils 0.1 Sodium 142.1 Potassium 4.0 Chloride 102 Carbon Dioxide 28 Anion Gap 12 BUN 12 Creatinine 0.64 Est GFR ( Amer) > 60 Est GFR (Non-Af Amer) > 60 Glucose 131 H Calcium 8.7 09/04/17 09/04/17 09/04/17 00:18 00:18 06:15 Creatine Kinase 34 53 CK-MB (CK-2) 1.30 Troponin I 0.015 09/04/17 09/04/17 09/04/17 06:15 13:00 13:00 Creatine Kinase 57 CK-MB (CK-2) 1.45 1.28 Troponin I 0.026 0.027 Impressions: Chest X-Ray 09/03/17 18:03 IMPRESSION: COPD. NO ACUTE RADIOGRAPHIC FINDING IN THE CHEST. Assessment & Plan - Diagnosis (1) CHF exacerbation Qualifiers: Congestive heart failure type: unspecified congestive heart failure type Qualified Code(s): I50.9 - Heart failure, unspecified Is this a current diagnosis for this admission?: Yes Plan: Improved. The patient initially was placed on BiPAP and has been successfully weaned to supplemental oxygen via nasal cannula at 2 L/min. Symptoms have improved, the patient now maintaining oxygen saturations on supplemental oxygen and denies dyspnea and orthopnea. Furosemide was discontinued yesterday secondary to volume contraction. Daily weights are stable. May use BiPAP nightly and as needed. Use supplemental oxygen as needed to keep O2 sats greater than 88% Echocardiogram demonstrated an LVEF greater than 60% with mild diastolic dysfunction. (2) COPD exacerbation Is this a current diagnosis for this admission?: Yes Plan: Patient's respiratory status has improved dramatically with diuresis, BiPAP, albuterol and Atrovent. She is currently maintaining oxygen saturations on supplemental oxygen via nasal cannula. She did receive 1 dose of Solu-Medrol 125 mg IV while in the emergency department. She is currently receiving vancomycin for treatment of cellulitis. Will hold on additional steroids and antibiotics at this time as the patient has shown significant improvement with more conservative measures. We will reduce frequency of DuoNeb's today. (3) Bilateral cellulitis of lower leg Is this a current diagnosis for this admission?: Yes Plan: Slightly improved appearance today. Complicated by severe venous stasis. WBCs with slight downward trend today (12.9--> 19.9--> 18.5). Leukocytosis may be in part due to IV Solu-Medrol received on admission. Blood cultures: No growth at 24 hrs. We will continue IV vancomycin for coverage of MRSA and narrow antibiotics as cultures result. (4) Leukocytosis Qualifiers: Leukocytosis type: unspecified Qualified Code(s): D72.829 - Elevated white blood cell count, unspecified Plan: Slight downward trend in WBCs today (12.9--> 19.9--> 18.5). Elevation may be in part due to having received IV Solu-Medrol while in the emergency department. We will continue with IV antibiotics as above and trend CBC. (5) Venous stasis Is this a current diagnosis for this admission?: Yes Plan: Elevation and DANNY stockings. Anticipate slight improvement with resolution of CHF exacerbation. Chronic in nature, patient not likely to have meaningful benefit from vascular referral. Strongly recommend smoking cessation. (6) Debility Is this a current diagnosis for this admission?: Yes Plan: The patient is a frail appearing 87-year-old with comorbid conditions. She currently lives at home with her who is on hospice. sr. merchandise planner met with the patient today who is agreeable to SNF for short- term rehab upon discharge. (7) Tobacco dependence Is this a current diagnosis for this admission?: Yes Plan: The patient is nightly and every day tobacco user. She states that she has been smoking "forever" and is unable to elaborate further. Counseling on smoking cessation provided. Nicotine replacement was offered and declined at this time. - Time Time Spent with patient: 15-24 minutes Medications reviewed and adjusted accordingly: Yes Anticipated discharge: SNF - Inpatient Certification Based on my medical assessment, after consideration of the patient's comorbidities, presenting symptoms, or acuity I expect that the services needed warrant INPATIENT care.: Yes I certify that my determination is in accordance with my understanding of Medicare's requirements for reasonable and necessary INPATIENT services [42 CFR 412.3e].: Yes Medical Necessity: Need Close Monitoring Due to Risk of Patient Decompensation, Need for IV Antibiotics
--- NOTE | 2017-09-05 15:44 | Palliative Consultation Report ---
Consultation From:: [facility] - [facility] HPI: Appreciate consult request for this 87 year old female who has been admitted with CHF and COPD exacerbations. SHe is much better than on arrival and says she is breathing better now. She speaks clearly, but some of what she says is a little confused. Mrs. Chakraborty cares for her at home, He is under hospice care and the hospice nurse had commented that Mrs. Chakraborty has looked ill for some time at home but would not go to doctor. Patient states her son lives with them and is caring for her while she is here. Patient wonders why she has information related to CHF on her bedside table from hospital. She said she has never been told that she has CHF and is concerned about that. She says she also doesnt think she has any lung problem and she does not use oxygen at home. She denies having any trouble breathing and doesn't remember being short of breath at home. Mrs. Chakraborty tells me that she is going to Pulmonary rehab when she leaves here. SHe says she is going to [facility] after discharge from here for this rehab. She also says she wants to go home as soon as she can from here because she has to cre for her . She denies pain except when lower right leg is touched or moved. She says she can walk, but then she cannot move her legs in the bed without assistance and says the right leg is very painful. I did talk with her about advance directives. She says she does not want to be on any machines but she would want CPR if needed. I tried to explain about the CPR, but I could see she was not grasping what I was talking about and I do not feel comfortable in requesting DNR order for her at this point because I am not sure she understood any of our conversation. Onset: Last week Onset/Duration: Gradual Quality of Pain: Achy, Cramping Severity: Mild Exacerbated by: Supine, Standing, Movement, Walking Relieved by: Remaining still Past Medical History(Consults) - General Information Source: Patient, [facility] Records Home Medications: Gabapentin [Neurontin 100 mg Capsule] 100 mg PO Q8 09/03/17 Oxycodone HCl [Oxycodone HCl 10 MG Tablet] 10 mg PO Q6 09/03/17 Allergies/Adverse Reactions: Influenza Virus Vaccines [Influenza Virus Vaccine] Allergy (Intermediate, Verified 09/03/17 18:23) violently ill pneumococcal vaccine [Pneumococcal Vaccine] Allergy (Intermediate, Verified 03/15 18:23) violently ill Sulfa (Sulfonamide Antibiotics) Allergy (Intermediate, Verified 09/03/17 18:23) tound splits open Penicillins Allergy (Mild, Verified 09/03/17 18:23) Hives - Social History Lives with: Family Family History: CAD, COPD Parental Family History Reviewed: No Children Family History Reviewed: No Sibling(s) Family History Reviewed.: No Smoking Status: Former Smoker Cigarettes Packs Per Day: 0.5 Frequency of Alcohol Use: None Hx Recreational Drug Use: No Hx Prescription Drug Abuse: No - Past Medical History Cardiac Medical History: Reports: Hx Coronary Artery Disease, Hx Hypertension Denies: Hx Atrial Fibrillation, Hx Congestive Heart Failure, Hx Heart Attack , Hx Hypercholesterolemia, Hx Peripheral Vascular Disease, Hx Heart Murmur Pulmonary Medical History: Reports: Hx Bronchitis, Hx COPD Denies: Hx Asthma, Hx Pneumonia, Hx Tuberculosis Neurological Medical History: Denies: Hx Cerebrovascular Accident, Hx Seizures Renal/ Medical History: Reports: Hx Kidney Stones. Denies: Hx Peritoneal Dialysis Musculoskeltal Medical History: Reports Hx Arthritis, Denies Hx Fibromyalgia, Denies Hx Muscular Dystrophy Psychiatric Medical History: Reports: Hx Anxiety Traumatic Medical History: Reports: Hx Fractures - left hip x 1 yr Hematology: Denies: Anemia - Surgical History Past Surgical History: Reports: Hx Pacemaker Review of systems Constitutional: Weakness, Recent illness Cardiovascular: Dyspnea, Edema Respiratory: Cough, Hurts to breath Skin: Other - cellulitis right lower leg Ojective:Exam Vital Signs: Temp Pulse Resp BP Pulse Ox 98.0 F 66 18 155/55 H 97 09/05/17 11:44 09/05/17 11:44 09/05/17 11:44 09/05/17 11:44 09/05/17 11:44 Intake & Output 09/04/17 09/05/17 09/06/17 06:59 06:59 06:59 Intake Total 240 849 Output Total 350 500 Balance -110 349 Weight 45.5 kg 45.5 kg - General General Appearance: Alert, Anxious Note:: Awake, alert, talkative. Anxious to go home. No dyspnea with nasal cannula Oxygen at present BS Clear. Legs very dry and no edema but painful when touched, especially right lower hleg. Patient could not reposition them herself on pillow. - Neck Neck: Normal - Respiratory Respiratory Status: No respiratory distress - Cardiovascular Rhythm: Regular - Extremities Upper extremity: Tender Lower extremities: Tender Objective-Diagnostic Laboratory: 09/05/17 09:25 09/05/17 09:25 09/05/17 09/05/17 09:25 09:25 WBC 18.5 H RBC 5.28 Hgb 15.2 Hct 45.4 MCV 86 MCH 28.7 MCHC 33.4 RDW 14.4 H Plt Count 336 Seg Neutrophils % 77.8 Lymphocytes % 11.1 L Monocytes % 10.4 Eosinophils % 0.0 Basophils % 0.7 Absolute Neutrophils 14.4 H Absolute Lymphocytes 2.1 Absolute Monocytes 1.9 H Absolute Eosinophils 0.0 Absolute Basophils 0.1 Sodium 142.1 Potassium 4.0 Chloride 102 Carbon Dioxide 28 Anion Gap 12 BUN 12 Creatinine 0.64 Est GFR ( Amer) > 60 Est GFR (Non-Af Amer) > 60 Glucose 131 H Calcium 8.7 09/04/17 09/04/17 09/04/17 00:18 00:18 06:15 Creatine Kinase 34 53 CK-MB (CK-2) 1.30 Troponin I 0.015 09/04/17 09/04/17 09/04/17 06:15 13:00 13:00 Creatine Kinase 57 CK-MB (CK-2) 1.45 1.28 Troponin I 0.026 0.027 Plan and Recommendation Plan and Recommendation: Will follow next week unless she has transferred to [facility] as she describes. Patient is not sure about advance directives. She said she did not want to be put on ventilator and yet she probably would want CPR. I will wait until she has more clear ability to make these decisions. Will follow. No acute needs at present. She is somewhat confused about her CHF diagnosis as she says she has never had heart or lung problems in the past. - Time Spent with Patient Time spent with patient: 15 to 30 Minutes
[2017-09-05] MEDS: HYDRALAZINE HCL INJ/PF 20 MG/1 ML SDV IV PRN (16:23)
[2017-09-05] MEDS ORDERED: GABAPENTIN 300 MG CAPSULE PO SCH (22:00)
[2017-09-05] MEDS: VANCOMYCIN HCL 500 MG in DEXTROSE 5%-WATER 100 ML IV SCH (22:16)
[2017-09-06] MEDS: KETOROLAC TROMETHAMINE INJ/PF 30 MG/1 ML SDV IV PRN ×3 (00:19→22:06)
[2017-09-06] MEDS: ENALAPRILAT DIHYDRATE INJ/PF 1.25 MG/1 ML SDV IV PRN ×2 (00:46→19:08)
[2017-09-06] MEDS: HYDRALAZINE HCL INJ/PF 20 MG/1 ML SDV IV PRN (01:33)
[2017-09-06] MEDS: OXYCODONE HCL IR 5 MG TABLET PO PRN ×3 (04:38→17:34)
[2017-09-06 04:40] LABS: HEMATOCRIT 45.4 % (36.0-47.0); HEMOGLOBIN 14.9 g/dL (12.0-15.5); HGB HCT DIFFERENCE -0.7; MEAN CORPUSCULAR HEMOGLOBIN 28.2 pg (27.0-33.4); MEAN CORPUSCULAR HGB CONC 32.8 g/dL (32.0-36.0); MEAN CORPUSCULAR VOLUME 86 fl (80-97); RED BLOOD COUNT 5.28 10^6/uL (3.72-5.28); RED CELL DISTRIBUTION WIDTH 14.2 % (11.5-14.0); WHITE BLOOD COUNT 12.7 10^3/uL (4.0-10.5)
[2017-09-06 04:55] LABS: ANION GAP 9 (5-19); BLOOD UREA NITROGEN 15 mg/dL (7-20); CALCIUM 8.7 mg/dL (8.4-10.2); CARBON DIOXIDE 29 mmol/L (22-30); CHLORIDE 102 mmol/L (98-107); CREATININE RESULT 0.76 mg/dL (0.52-1.25); GLUCOSE 95 mg/dL (75-110); POTASSIUM 3.9 mmol/L (3.6-5.0); SODIUM 140.1 mmol/L (137-145)
[2017-09-06] MEDS: HEPARIN SOD (PORCINE) 5,000 UNIT/ML 1 ML SYRINGE SUBCUT SCH ×3 (05:07→22:05)
[2017-09-06] MEDS: IPRATROPIUM/ALBUTEROL 0.5-2.5 MG/3 ML AMPUL NEB SCH (07:40)
[2017-09-06] MEDS: DOCUSATE SODIUM 100 MG CAPSULE PO SCH (10:57)
[2017-09-06] MEDS: LOSARTAN POTASSIUM 25 MG TABLET PO SCH (10:57)
[2017-09-06] MEDS: CARVEDILOL 3.125 MG TABLET PO SCH ×2 (10:58→22:06)
[2017-09-06] MEDS: ASPIRIN 81 MG TABLET, CHEWABLE PO SCH (10:58)
[2017-09-06] MEDS: FLUTICASONE NASAL SPRAY 50 MCG/SPRY 120 SPRAY/16 GM NASL SCH ×2 (10:58→22:06)
[2017-09-06] MEDS: POTASSIUM CHLORIDE 10 MEQ TABLET.SA PO SCH (10:58)
[2017-09-06] MEDS: NITROGLYCERIN 5 MG (0.2 MG/HR) PATCH.TD24 TD SCH (10:59)
[2017-09-06] MEDS ORDERED: FUROSEMIDE 20 MG TABLET PO ONE (11:30)
[2017-09-06] MEDS ORDERED: LIDOCAINE 5% (700 MG) TRANSDERMAL ADH..PATCH TP ONE (12:00)
[2017-09-06] MEDS ORDERED: IPRATROPIUM/ALBUTEROL 0.5-2.5 MG/3 ML AMPUL NEB PRN (13:15)
--- NOTE | 2017-09-06 13:20 | PDOC PROGRESS REPORT ---
Subjective Progress Note for:: 09/06/17 Subjective:: The patient was seen this morning for follow-up of CHF exacerbation, COPD exacerbation and cellulitis of the bilateral lower legs. She is found resting in bed comfortably with her daughter, Janet perez), present. The patient reports continued bilateral lower leg pain especially to bilateral feet. She does note that her pain is improved slightly as compared to yesterday. She reports that her dyspnea, orthopnea and cough have all improved. She did not require BiPAP overnight and is currently on supplemental oxygen at 2 L via nasal cannula. The patient and daughter express a desire to be discharged to [facility] for short-term rehab when she is stable. We also discussed the patient's code status. The patient very clearly expressed a desire to be a DNR/DNI, stating that she would not want aggressive measures to be taken. The daughter, Janet, stated to me that she was relieved to hear that her mother had come to this decision. They have no other questions or concerns today. Reason For Visit: COPD EXACERBATION, ACUTE BRONCHITIS, HEART Physical Exam Vital Signs: Temp Pulse Resp BP Pulse Ox 98.2 F 75 16 168/78 H 95 09/06/17 11:33 09/06/17 11:33 09/06/17 11:33 09/06/17 11:33 09/06/17 11:33 Intake & Output 09/05/17 09/06/17 09/07/17 06:59 06:59 06:59 Intake Total 849 1576 Output Total 500 Balance 349 1576 Weight 45.5 kg 47.8 kg General appearance: PRESENT: no acute distress, well-developed, well-nourished, other - frail Head exam: PRESENT: atraumatic, normocephalic Eye exam: PRESENT: conjunctiva pink, EOMI, PERRLA. ABSENT: scleral icterus Ear exam: PRESENT: normal external ear exam Mouth exam: PRESENT: moist, tongue midline Teeth exam: PRESENT: poor dentation Neck exam: ABSENT: carotid bruit, JVD, lymphadenopathy, thyromegaly Respiratory exam: PRESENT: clear to auscultation jerry, symmetrical, unlabored. ABSENT: rales, rhonchi, wheezes Cardiovascular exam: PRESENT: RRR, +S1, +S2. ABSENT: diastolic murmur, rubs, systolic murmur Pulses: PRESENT: normal dorsalis pedis pul Vascular exam: PRESENT: normal capillary refill GI/Abdominal exam: PRESENT: normal bowel sounds, soft. ABSENT: distended, guarding, mass, organolmegaly, rebound, tenderness Rectal exam: PRESENT: deferred Extremities exam: PRESENT: full ROM. ABSENT: calf tenderness, clubbing, pedal edema Musculoskeletal exam: PRESENT: tenderness Neurological exam: PRESENT: alert, awake, oriented to person, oriented to place , oriented to time, oriented to situation, CN II-XII grossly intact. ABSENT: motor sensory deficit Psychiatric exam: PRESENT: appropriate affect, normal mood, other - appropriately tearful. ABSENT: homicidal ideation, suicidal ideation Skin exam: PRESENT: dry, erythema - BLE; improved from yesterday, warm. ABSENT : cyanosis, intact - Venous stasis ulcers to Rt lateral lower extremity., rash Results Laboratory Results: 09/06/17 04:11 09/06/17 04:11 09/06/17 09/06/17 04:11 04:11 WBC 12.7 H RBC 5.28 Hgb 14.9 Hct 45.4 MCV 86 MCH 28.2 MCHC 32.8 RDW 14.2 H Plt Count 321 Sodium 140.1 Potassium 3.9 Chloride 102 Carbon Dioxide 29 Anion Gap 9 BUN 15 Creatinine 0.76 Est GFR ( Amer) > 60 Est GFR (Non-Af Amer) > 60 Glucose 95 Calcium 8.7 09/04/17 09/04/17 09/04/17 00:18 00:18 06:15 Creatine Kinase 34 53 CK-MB (CK-2) 1.30 Troponin I 0.015 09/04/17 09/04/17 09/04/17 06:15 13:00 13:00 Creatine Kinase 57 CK-MB (CK-2) 1.45 1.28 Troponin I 0.026 0.027 Impressions: Chest X-Ray 09/03/17 18:03 IMPRESSION: COPD. NO ACUTE RADIOGRAPHIC FINDING IN THE CHEST. Assessment & Plan - Diagnosis (1) CHF exacerbation Qualifiers: Congestive heart failure type: unspecified congestive heart failure type Qualified Code(s): I50.9 - Heart failure, unspecified Is this a current diagnosis for this admission?: Yes Plan: Continued improvement. The patient initially was placed on BiPAP and has been successfully weaned to supplemental oxygen via nasal cannula at 2 L/min. Symptoms have improved, the patient now maintaining oxygen saturations on supplemental oxygen and denies dyspnea and orthopnea. Furosemide was discontinued secondary to volume contraction. Weight is up 2 kg from admission, will restart low dose furosemide at 10 mg p.o. and continue to trend weights. May use BiPAP nightly and as needed. Use supplemental oxygen as needed to keep O2 sats greater than 88% Echocardiogram demonstrated an LVEF greater than 60% with mild diastolic dysfunction. She continues on Carvedilol, Losartan, Nitro transdermal patch, and ASA. (2) COPD exacerbation Is this a current diagnosis for this admission?: Yes Plan: Resolved. Patient's respiratory status has improved dramatically with diuresis, BiPAP, albuterol and Atrovent. She is currently maintaining oxygen saturations on supplemental oxygen via nasal cannula. She did receive 1 dose of Solu-Medrol 125 mg IV while in the emergency department. She is currently receiving vancomycin for treatment of cellulitis. Will hold on additional steroids and antibiotics at this time as the patient has shown significant improvement with more conservative measures. We will transition to prn nebulizer treatments today. (3) Bilateral cellulitis of lower leg Is this a current diagnosis for this admission?: Yes Plan: Continued improved appearance today. Complicated by severe venous stasis. WBCs with trending down (12.9--> 19.9--> 18.5--> 12.7). Leukocytosis may be in part due to IV Solu-Medrol received on admission. Blood cultures: No growth at 48 hrs. We will continue IV vancomycin for coverage of MRSA and narrow antibiotics as cultures result. (4) Leukocytosis Qualifiers: Leukocytosis type: unspecified Qualified Code(s): D72.829 - Elevated white blood cell count, unspecified Plan: Improving (12.9--> 19.9--> 18.5--> 12.7). Elevation may be in part due to having received IV Solu-Medrol while in the emergency department. We will continue with IV antibiotics as above and trend CBC. (5) Venous stasis Is this a current diagnosis for this admission?: Yes Plan: Elevation and DANNY stockings. Anticipate slight improvement with resolution of CHF exacerbation. Chronic in nature, patient not likely to have meaningful benefit from vascular referral. Strongly recommend smoking cessation. (6) Debility Is this a current diagnosis for this admission?: Yes Plan: The patient is a frail appearing 87-year-old with comorbid conditions. She currently lives at home with her who is on hospice. special events planner met with the patient, who is agreeable to SNF for short-term rehab upon discharge, and is attempting to make arrangements for [facility]. Will ask PT/OT to meet with patient. Patient and daughter report that she has not been ambulatory for several weeks to months. (7) Tobacco dependence Is this a current diagnosis for this admission?: Yes Plan: The patient is nightly and every day tobacco user. She states that she has been smoking "forever" and is unable to elaborate further. Counseling on smoking cessation provided. Nicotine replacement was offered and declined at this time. (8) DNR (do not resuscitate) Is this a current diagnosis for this admission?: Yes Plan: The patient very clearly expressed a desire to be a DNR/DNI, stating that she would not want aggressive measures to be taken. The daughter, Janet, stated to me that she was relieved to hear that her mother had come to this decision and fully supports DNR status. - Time Time Spent with patient: 15-24 minutes Medications reviewed and adjusted accordingly: Yes Anticipated discharge: Acute Rehab Within: within 72 hours - Inpatient Certification Based on my medical assessment, after consideration of the patient's comorbidities, presenting symptoms, or acuity I expect that the services needed warrant INPATIENT care.: Yes I certify that my determination is in accordance with my understanding of Medicare's requirements for reasonable and necessary INPATIENT services [42 CFR 412.3e].: Yes Medical Necessity: Need for IV Antibiotics
[2017-09-06] MEDS: GABAPENTIN 300 MG CAPSULE PO SCH ×2 (13:42→22:06)
[2017-09-06] MEDS ORDERED: GABAPENTIN 100 MG CAPSULE PO SCH (14:00)
[2017-09-06] MEDS: MINERAL OIL/PETROLATUM,WHITE CREAM 114 GM TP SCH ×3 (14:34→22:06)
[2017-09-06] MEDS: VANCOMYCIN HCL 500 MG in DEXTROSE 5%-WATER 100 ML IV SCH (22:06)
[2017-09-07] MEDS ORDERED: HYDRALAZINE HCL INJ/PF 20 MG/1 ML SDV IV ONE (01:30)
[2017-09-07] MEDS: OXYCODONE HCL IR 5 MG TABLET PO PRN (02:21)
[2017-09-07] MEDS: HEPARIN SOD (PORCINE) 5,000 UNIT/ML 1 ML SYRINGE SUBCUT SCH ×3 (04:55→21:49)
[2017-09-07] MEDS: KETOROLAC TROMETHAMINE INJ/PF 30 MG/1 ML SDV IV PRN (05:28)
[2017-09-07] MEDS: GABAPENTIN 300 MG CAPSULE PO SCH ×3 (05:28→21:50)
[2017-09-07 07:47] LABS: HEMOGLOBIN 15.6 g/dL (12.0-15.5); HGB HCT DIFFERENCE -0.2; MEAN CORPUSCULAR HEMOGLOBIN 28.6 pg (27.0-33.4); MEAN CORPUSCULAR HGB CONC 33.2 g/dL (32.0-36.0); MEAN CORPUSCULAR VOLUME 86 fl (80-97); RED BLOOD COUNT 5.46 10^6/uL (3.72-5.28); RED CELL DISTRIBUTION WIDTH 14.3 % (11.5-14.0); WHITE BLOOD COUNT 9.9 10^3/uL (4.0-10.5)
[2017-09-07 08:03] LABS: ANION GAP 10 (5-19); BLOOD UREA NITROGEN 18 mg/dL (7-20); CALCIUM 9.3 mg/dL (8.4-10.2); CARBON DIOXIDE 28 mmol/L (22-30); CHLORIDE 99 mmol/L (98-107); CREATININE RESULT 0.86 mg/dL (0.52-1.25); GLUCOSE 95 mg/dL (75-110); POTASSIUM 4.4 mmol/L (3.6-5.0); SODIUM 137.1 mmol/L (137-145)
[2017-09-07] MEDS: ASPIRIN 81 MG TABLET, CHEWABLE PO SCH (09:40)
[2017-09-07] MEDS: POTASSIUM CHLORIDE 10 MEQ TABLET.SA PO SCH (09:40)
[2017-09-07] MEDS: DOCUSATE SODIUM 100 MG CAPSULE PO SCH (09:40)
[2017-09-07] MEDS: LOSARTAN POTASSIUM 25 MG TABLET PO SCH (09:41)
[2017-09-07] MEDS: CARVEDILOL 3.125 MG TABLET PO SCH ×2 (09:41→21:49)
[2017-09-07] MEDS: FLUTICASONE NASAL SPRAY 50 MCG/SPRY 120 SPRAY/16 GM NASL SCH ×2 (09:41→21:49)
[2017-09-07] MEDS: MINERAL OIL/PETROLATUM,WHITE CREAM 114 GM TP SCH ×4 (09:42→21:49)
[2017-09-07] MEDS: NITROGLYCERIN 5 MG (0.2 MG/HR) PATCH.TD24 TD SCH (09:42)
[2017-09-07] MEDS: LIDOCAINE 5% (700 MG) TRANSDERMAL ADH..PATCH TP SCH (09:42)
[2017-09-07] MEDS ORDERED: FUROSEMIDE 20 MG TABLET PO SCH (10:00)
[2017-09-07] MEDS ORDERED: IPRATROPIUM/ALBUTEROL 0.5-2.5 MG/3 ML AMPUL NEB ONE (10:37)
--- NOTE | 2017-09-07 11:35 | PDOC PROGRESS REPORT ---
Subjective Progress Note for:: 09/07/17 Subjective:: The patient was seen this morning for follow-up of CHF exacerbation, COPD exacerbation and cellulitis of the bilateral lower legs. She is found resting in bed comfortably. Sheis on supplemental oxygen at 2 lpm via NC. She reports significant improvement in her bilateral leg pain with increase in pain medications yesterday. She reports that her dyspnea and orthopnea have improved, but complains that she has a slight increase in her productive cough. Overall, she stated that she is feeling much better and is optimistic that she will be ready for discharge to SNF for short term rehabilitation tomorrow. They have no other questions or concerns today. Reason For Visit: COPD EXACERBATION, ACUTE BRONCHITIS, HEART Physical Exam Vital Signs: Temp Pulse Resp BP Pulse Ox 98.0 F 68 16 149/62 H 96 09/07/17 08:00 09/07/17 08:00 09/07/17 08:00 09/07/17 08:00 09/07/17 08:00 Intake & Output 09/06/17 09/07/17 09/08/17 06:59 06:59 06:59 Intake Total 1576 1090 Output Total 2650 Balance 1576 -1560 Weight 47.8 kg 46.3 kg General appearance: PRESENT: no acute distress, thin, well-developed, well- nourished Head exam: PRESENT: atraumatic, normocephalic Eye exam: PRESENT: conjunctiva pink, EOMI, PERRLA. ABSENT: scleral icterus Ear exam: PRESENT: normal external ear exam Mouth exam: PRESENT: moist, tongue midline Neck exam: ABSENT: carotid bruit, JVD, lymphadenopathy, thyromegaly Respiratory exam: PRESENT: rhonchi, symmetrical, unlabored, wheezes. ABSENT: rales Cardiovascular exam: PRESENT: RRR, +S1, +S2. ABSENT: diastolic murmur, rubs, systolic murmur Pulses: PRESENT: normal dorsalis pedis pul Vascular exam: PRESENT: normal capillary refill GI/Abdominal exam: PRESENT: normal bowel sounds, soft. ABSENT: distended, guarding, mass, organolmegaly, rebound, tenderness Rectal exam: PRESENT: deferred Extremities exam: PRESENT: full ROM. ABSENT: calf tenderness, clubbing, pedal edema Neurological exam: PRESENT: alert, awake, oriented to person, oriented to place , oriented to time, oriented to situation, CN II-XII grossly intact. ABSENT: motor sensory deficit Psychiatric exam: PRESENT: appropriate affect, normal mood. ABSENT: homicidal ideation, suicidal ideation Skin exam: PRESENT: dry, erythema, warm, other - Significant improvements noted to BLE overnight. Circumfrencial erythema to bilateral lower legs is improved, edema has resolved. Venous stasis ulcer to lateral right leg w/ slight purulent drainge.. ABSENT: cyanosis, intact, rash Results Laboratory Results: 09/07/17 07:35 09/07/17 07:35 09/07/17 09/07/17 07:35 07:35 WBC 9.9 RBC 5.46 H Hgb 15.6 H Hct 47.0 MCV 86 MCH 28.6 MCHC 33.2 RDW 14.3 H Plt Count 314 Sodium 137.1 Potassium 4.4 Chloride 99 Carbon Dioxide 28 Anion Gap 10 BUN 18 Creatinine 0.86 Est GFR ( Amer) > 60 Est GFR (Non-Af Amer) > 60 Glucose 95 Calcium 9.3 09/04/17 09/04/17 09/04/17 00:18 00:18 06:15 Creatine Kinase 34 53 CK-MB (CK-2) 1.30 Troponin I 0.015 NT-Pro-B Natriuret Pep 09/04/17 09/04/17 09/04/17 06:15 13:00 13:00 Creatine Kinase 57 CK-MB (CK-2) 1.45 1.28 Troponin I 0.026 0.027 NT-Pro-B Natriuret Pep 09/07/17 07:35 Creatine Kinase CK-MB (CK-2) Troponin I NT-Pro-B Natriuret Pep 5620 H Impressions: Chest X-Ray 09/03/17 18:03 IMPRESSION: COPD. NO ACUTE RADIOGRAPHIC FINDING IN THE CHEST. Assessment & Plan - Diagnosis (1) CHF exacerbation Qualifiers: Congestive heart failure type: unspecified congestive heart failure type Qualified Code(s): I50.9 - Heart failure, unspecified Is this a current diagnosis for this admission?: Yes Plan: Slightly worse today, though stable. The patient initially was placed on BiPAP and has been successfully weaned to supplemental oxygen via nasal cannula at 2 L /min. She denies dyspnea and orthopnea. Slight increase in cough. ProBNP is elevated today and pt has rhonchi/crackles on exam. Will provide furosemide 20 mg IV x 1 and resume her home dosing of furosemide tomorrow. May use BiPAP nightly and as needed. Use supplemental oxygen as needed to keep O2 sats greater than 88% Echocardiogram demonstrated an LVEF greater than 60% with mild diastolic dysfunction. She continues on Carvedilol, Losartan, Nitro transdermal patch, and ASA. (2) COPD exacerbation Is this a current diagnosis for this admission?: Yes Plan: Slightly worse today with increased productive cough and rhonchi/wheezing on exam. Patient's respiratory status has improved dramatically with diuresis, BiPAP, albuterol and Atrovent. She is currently maintaining oxygen saturations on supplemental oxygen via nasal cannula. Continue nebulizer treatments today and start p.o. prednisone. (3) Bilateral cellulitis of lower leg Is this a current diagnosis for this admission?: Yes Plan: Continued improved appearance today. Complicated by severe venous stasis. WBCs with trending down (12.9--> 19.9--> 18.5--> 12.7--> 9.9). Leukocytosis may be in part due to IV Solu-Medrol received on admission. Blood cultures: No growth at 72 hrs. Pt was placed on IV vancomycin for coverage of MRSA; will transition to p.o. clindamycin in anticipation of d/c to SNF tomorrow. (4) Leukocytosis Qualifiers: Leukocytosis type: unspecified Qualified Code(s): D72.829 - Elevated white blood cell count, unspecified Plan: Resolved (12.9--> 19.9--> 18.5--> 12.7--> 9.9). Anticipate that WBC may increase tomorrow 2/2 restart of p.o. steroids for COPD exacerbation. (5) Venous stasis Is this a current diagnosis for this admission?: Yes Plan: Elevation and DANNY stockings. Anticipate slight improvement with resolution of CHF exacerbation. Chronic in nature, patient not likely to have meaningful benefit from vascular referral. Strongly recommend smoking cessation. (6) Debility Is this a current diagnosis for this admission?: Yes Plan: The patient is a frail appearing 87-year-old with comorbid conditions. She currently lives at home with her who is on hospice. associate financial planner met with the patient, who is agreeable to SNF for short-term rehab upon discharge, and is attempting to make arrangements for [facility]. Will ask PT/OT to meet with patient. Patient and daughter report that she has not been ambulatory for several weeks to months. (7) Tobacco dependence Is this a current diagnosis for this admission?: Yes Plan: The patient is nightly and every day tobacco user. She states that she has been smoking "forever" and is unable to elaborate further. Counseling on smoking cessation provided. Nicotine replacement was offered and declined at this time. (8) DNR (do not resuscitate) Is this a current diagnosis for this admission?: Yes Plan: The patient very clearly expressed a desire to be a DNR/DNI, stating that she would not want aggressive measures to be taken. The daughter, Janet, stated to me that she was relieved to hear that her mother had come to this decision and fully supports DNR status. - Time Time Spent with patient: 25-34 minutes Medications reviewed and adjusted accordingly: Yes Anticipated discharge: Acute Rehab Within: within 24 hours - Inpatient Certification Based on my medical assessment, after consideration of the patient's comorbidities, presenting symptoms, or acuity I expect that the services needed warrant INPATIENT care.: Yes I certify that my determination is in accordance with my understanding of Medicare's requirements for reasonable and necessary INPATIENT services [42 CFR 412.3e].: Yes Medical Necessity: Need Close Monitoring Due to Risk of Patient Decompensation
[2017-09-07] MEDS: CLINDAMYCIN HCL 150 MG CAPSULE PO SCH ×2 (11:49→17:53)
[2017-09-07] MEDS: PREDNISONE 20 MG TABLET PO SCH (11:50)
[2017-09-07] MEDS ORDERED: FUROSEMIDE INJ/PF 20 MG/2 ML SDV IV ONE (12:30)
[2017-09-07] MEDS: IPRATROPIUM/ALBUTEROL 0.5-2.5 MG/3 ML AMPUL NEB SCH ×2 (16:08→23:59)
[2017-09-08] MEDS: CLINDAMYCIN HCL 150 MG CAPSULE PO SCH ×3 (00:46→11:42)
[2017-09-08] MEDS: ENALAPRILAT DIHYDRATE INJ/PF 1.25 MG/1 ML SDV IV PRN (04:21)
[2017-09-08] MEDS: HEPARIN SOD (PORCINE) 5,000 UNIT/ML 1 ML SYRINGE SUBCUT SCH ×2 (05:54→14:14)
[2017-09-08] MEDS: GABAPENTIN 300 MG CAPSULE PO SCH ×2 (05:54→14:13)
[2017-09-08] MEDS ORDERED: CARVEDILOL 6.25 MG TABLET PO SCH (07:40)
[2017-09-08] MEDS: IPRATROPIUM/ALBUTEROL 0.5-2.5 MG/3 ML AMPUL NEB SCH ×2 (08:23→15:58)
[2017-09-08 08:34] LABS: HEMOGLOBIN 15.4 g/dL (12.0-15.5); HGB HCT DIFFERENCE 0.2; MEAN CORPUSCULAR HEMOGLOBIN 28.4 pg (27.0-33.4); MEAN CORPUSCULAR HGB CONC 33.5 g/dL (32.0-36.0); MEAN CORPUSCULAR VOLUME 85 fl (80-97); RED BLOOD COUNT 5.44 10^6/uL (3.72-5.28); WHITE BLOOD COUNT 10.8 10^3/uL (4.0-10.5)
[2017-09-08] MEDS ORDERED: FUROSEMIDE 20 MG TABLET PO SCH (10:00)
[2017-09-08 10:31] LABS: ANION GAP 9 (5-19); BLOOD UREA NITROGEN 26 mg/dL (7-20); CALCIUM 8.9 mg/dL (8.4-10.2); CARBON DIOXIDE 28 mmol/L (22-30); CHLORIDE 98 mmol/L (98-107); CREATININE RESULT 0.94 mg/dL (0.52-1.25); GLUCOSE 110 mg/dL (75-110); POTASSIUM 4.2 mmol/L (3.6-5.0); SODIUM 135.2 mmol/L (137-145)
[2017-09-08] MEDS: PREDNISONE 20 MG TABLET PO SCH (10:50)
[2017-09-08] MEDS: POTASSIUM CHLORIDE 10 MEQ TABLET.SA PO SCH (10:51)
[2017-09-08] MEDS: DOCUSATE SODIUM 100 MG CAPSULE PO SCH (10:51)
[2017-09-08] MEDS: LOSARTAN POTASSIUM 25 MG TABLET PO SCH (10:52)
[2017-09-08] MEDS: ASPIRIN 81 MG TABLET, CHEWABLE PO SCH (10:52)
[2017-09-08] MEDS: MINERAL OIL/PETROLATUM,WHITE CREAM 114 GM TP SCH ×2 (10:53→14:13)
[2017-09-08] MEDS: NITROGLYCERIN 5 MG (0.2 MG/HR) PATCH.TD24 TD SCH (10:53)
[2017-09-08] MEDS: LIDOCAINE 5% (700 MG) TRANSDERMAL ADH..PATCH TP SCH (10:53)
[2017-09-08] MEDS: FLUTICASONE NASAL SPRAY 50 MCG/SPRY 120 SPRAY/16 GM NASL SCH (10:54)
[2017-09-08] MEDS: OXYCODONE HCL IR 5 MG TABLET PO PRN (11:06)
--- NOTE | 2017-09-08 12:27 | PDOC TRANSFER SUMMARY ---
<SALEEM IRBY - Last Filed: 09/08/17 12:12> General - Admit/Disc Date/PCP Admission Date/Primary Care Provider: 09/03/17 20:22 Discharge Date: 09/08/17 - Discharge Diagnosis (1) CHF exacerbation Is this a current diagnosis for this admission?: Yes Summary: Patient was admitted with a CHF exacerbation. She was initially placed on BiPAP and received IV furosemide. Her breathing rapidly improved and she was successfully weaned to supplemental oxygen via nasal cannula 2 L/min. She denies dyspnea and orthopnea but does continue to have a slightly productive cough. Her pro-BNP have trended down. Axial cardiogram demonstrated an LVEF greater than 60% with mild diastolic dysfunction. At this time she is stable for discharge to half-way facility for short- term rehab. She will be discharged on carvedilol, losartan, nitro transdermal patch, and ASA. (2) COPD exacerbation Is this a current diagnosis for this admission?: Yes Summary: The patient's respiratory status has improved greatly after diuresis, short use of BiPAP, albuterol and Atrovent DuoNeb's. She is now maintaining oxygen saturations on low flow supplement oxygen via nasal cannula. She continues to have a slightly productive cough. On exam she has rhonchi and wheezing that resolved following DuoNeb treatment this morning. Morning labs do demonstrate a slightly increased bicarb level which is presumed to be secondary to COPD exacerbation. She is stable for discharge to half-way facility for short-term rehab on supplemental oxygen with scheduled and as needed treatments. She has been prescribed p.o. prednisone. Additionally, she is on clindamycin for cellulitis. The patient will not require BiPAP/CPAP. (3) Bilateral cellulitis of lower leg Is this a current diagnosis for this admission?: Yes Summary: The patient was admitted with bilateral lower leg cellulitis with vascular ulcerations noted to the right lateral and posterior lower leg. The patient's erythema and edema have improved dramatically and her pain is now well controlled with as needed oxycodone. She was initially started on vancomycin for coverage of MRSA and was transitioned to p.o. clindamycin yesterday. Will be discharged to SNF with Rx for clindamycin for a total of 10 day course of therapy. (4) Leukocytosis Summary: Leukocytosis secondary to cellulitis and steroid dosing for COPD exacerbation. Has trended downward. WBC count 10.8 this a.m. No evidence of acutely worsening illness; this is likely related related to restart of p.o. prednisone yesterday for COPD exacerbation. (5) Venous stasis Is this a current diagnosis for this admission?: Yes Summary: Treated with elevation and DANNY stockings. Chronic in nature, patient unlikely to have meaningful benefit from vascular referral. Strongly recommended smoking cessation. (6) Debility Is this a current diagnosis for this admission?: Yes Summary: The patient is a frail-appearing 87-year-old woman with comorbid conditions. Patient and the daughter reports that she has been nonambulatory for several weeks prior to admission. She currently lives at home with her who is on hospice. At this time she is agreeable to transfer to SNF for short-term rehab. (7) Tobacco dependence Is this a current diagnosis for this admission?: Yes (8) DNR (do not resuscitate) Is this a current diagnosis for this admission?: Yes - Additional Information Resuscitation Status: Full Code Discharge Diet: Cardiac Discharge Activity: Activity As Tolerated, Balance Activity w/Rest, Energy Conservation, Weigh Daily Home Medications: Aspirin [Aspirin 81 mg Chewable Tablet] 81 mg PO DAILY #90 tab.chew 09/08/17 Carvedilol [Coreg 6.25 mg Tablet] 6.25 mg PO Q12 #30 tablet 09/08/17 Clindamycin HCl [Cleocin 150 mg Capsule] 300 mg PO Q6 #40 capsule 09/08/17 Fluticasone Propionate [Flonase Nasal Adams 50 Mcg/Adams 16 gm] 2 spray NASL Q12 #1 spray.pump 09/08/17 Furosemide [Lasix 20 mg Tablet] 20 mg PO DAILY #30 tablet 09/08/17 Gabapentin [Neurontin 100 mg Capsule] 100 mg PO Q8 #90 capsule 09/08/17 Ipratropium/Albuterol Sulfate [Duoneb 3 ml Ampul] 3 ml NEB RTQ8 #30 vial.neb 08/15 Lidocaine [Lidoderm 5% (700 mg) Transdermal Patch] 1 patch TP DAILY #30 adh..patch 09/08/17 Losartan Potassium [Cozaar 25 mg Tablet] 25 mg PO DAILY #30 tablet 09/08/17 Mineral Oil/Petrolatum,White [Eucerin Cream 114 gm] 1 applic TP QID #1 jar 09/08 Nitroglycerin [Nitro-Dur 5 mg (0.2 mg/Hr) Transdermal Patch] 1 each TD DAILY # 30 patch.td24 09/08/17 Oxycodone HCl [Oxy-Ir 5 mg Tablet] 10 mg PO Q6HP PRN #12 tablet 09/08/17 Potassium Chloride [Klor-Con 10 Meq Tablet.sa] 20 meq PO DAILY #30 tablet.sa 08/15 Prednisone [Deltasone 20 mg Tablet] 60 mg PO DAILY #15 tablet 09/08/17 History of Present Illness Admission Date/PCP: 09/03/17 20:22 History of Present Illness: Per H&P by Dr. Moore: JAIR WHITE is a 87 year old female with a history of congestive heart failure with AICD, COPD, hypertension, ventral hernia, venous stasis and chronic pain. Patient presents after approximately 7 days of shortness of breath, nonproductive cough and bilateral leg edema and erythema. She denies chest pain nausea vomiting or diaphoresis. In the emergency room she is found to have uncontrolled sinus tachycardia in the 120s, crackles on lung auscultation, and right leg ulcer with erythema. She started on DuoNeb, BiPAP and IV Lasix and referred to the hospitalist for admission. Patient denies chest pain and admits feeling better on BiPAP. She is unaware of any recent change in medications. Patient does state she is essentially immobile and spends day and night in her recliner. Physical Exam Vital Signs: Temp Pulse Resp BP Pulse Ox 97.5 F 70 18 157/79 H 95 09/08/17 11:15 09/08/17 11:15 09/08/17 11:15 09/08/17 11:15 09/08/17 11:15 Intake & Output 09/07/17 09/08/17 09/09/17 06:59 06:59 06:59 Intake Total 1090 558 Output Total 2650 750 Balance -1560 -192 Weight 46.3 kg 46.5 kg General appearance: PRESENT: no acute distress, thin, well-developed, well- nourished, other - chronically-ill appearing Head exam: PRESENT: atraumatic, normocephalic Eye exam: PRESENT: conjunctiva pink, EOMI, PERRLA. ABSENT: scleral icterus Ear exam: PRESENT: normal external ear exam Mouth exam: PRESENT: moist, tongue midline Teeth exam: PRESENT: poor dentation Neck exam: ABSENT: carotid bruit, JVD, lymphadenopathy, thyromegaly Respiratory exam: PRESENT: clear to auscultation jerry, symmetrical, unlabored, other - productive cough. ABSENT: rales, rhonchi, wheezes Cardiovascular exam: PRESENT: RRR, +S1, +S2. ABSENT: diastolic murmur, rubs, systolic murmur, tachycardia Pulses: PRESENT: normal dorsalis pedis pul Vascular exam: PRESENT: normal capillary refill GI/Abdominal exam: PRESENT: normal bowel sounds, soft. ABSENT: distended, guarding, mass, organolmegaly, rebound, tenderness Rectal exam: PRESENT: deferred Extremities exam: PRESENT: full ROM. ABSENT: calf tenderness, clubbing, pedal edema Neurological exam: PRESENT: alert, awake, oriented to person, oriented to place , oriented to time, oriented to situation, CN II-XII grossly intact. ABSENT: motor sensory deficit Psychiatric exam: PRESENT: appropriate affect, normal mood. ABSENT: homicidal ideation, suicidal ideation Skin exam: PRESENT: dry, warm. ABSENT: cyanosis, intact - Venous stasis ulcer to right lateral and posterior leg. BLE with improving errythema, rash Results Laboratory Results: 09/08/17 08:12 09/08/17 08:12 09/08/17 09/08/17 08:12 08:12 WBC 10.8 H RBC 5.44 H Hgb 15.4 Hct 46.0 MCV 85 MCH 28.4 MCHC 33.5 RDW 14.0 Plt Count 326 Sodium 135.2 L Potassium 4.2 Chloride 98 Carbon Dioxide 28 Anion Gap 9 BUN 26 H Creatinine 0.94 Est GFR ( Amer) > 60 Est GFR (Non-Af Amer) 56 L Glucose 110 Calcium 8.9 09/04/17 09/04/17 09/04/17 00:18 00:18 06:15 Creatine Kinase 34 53 CK-MB (CK-2) 1.30 Troponin I 0.015 NT-Pro-B Natriuret Pep 09/04/17 09/04/17 09/04/17 06:15 13:00 13:00 Creatine Kinase 57 CK-MB (CK-2) 1.45 1.28 Troponin I 0.026 0.027 NT-Pro-B Natriuret Pep 09/07/17 09/08/17 07:35 08:12 Creatine Kinase CK-MB (CK-2) Troponin I NT-Pro-B Natriuret Pep 5620 H 4500 H Impressions: Chest X-Ray 09/03/17 18:03 IMPRESSION: COPD. NO ACUTE RADIOGRAPHIC FINDING IN THE CHEST. Transfer Plan - Disposition Transfer Plan: Transfer to [facility] for skilled rehab - Time Spent with Patient Time spent with patient: Less than 30 Minutes Qualifiers PATEINT BEING DISCHARGED WITH ANY OF THE FOLLOWING DIAGNOSIS?: Heart Failure <ONEL HORNE - Last Filed: 09/08/17 14:39> General - Admit/Disc Date/PCP Admission Date/Primary Care Provider: 09/03/17 20:22 History of Present Illness Admission Date/PCP: 09/03/17 20:22 History of Present Illness: JAIR WHITE is a 87 year old female Physical Exam Vital Signs: Temp Pulse Resp BP Pulse Ox 97.5 F 70 18 157/79 H 95 09/08/17 11:15 09/08/17 11:15 09/08/17 11:15 09/08/17 11:15 09/08/17 11:15 Intake & Output 09/07/17 09/08/17 09/09/17 06:59 06:59 06:59 Intake Total 1090 558 240 Output Total 2650 750 125 Balance -1560 -192 115 Weight 46.3 kg 46.5 kg Results Laboratory Results: 09/08/17 08:12 09/08/17 08:12 09/08/17 09/08/17 08:12 08:12 WBC 10.8 H RBC 5.44 H Hgb 15.4 Hct 46.0 MCV 85 MCH 28.4 MCHC 33.5 RDW 14.0 Plt Count 326 Sodium 135.2 L Potassium 4.2 Chloride 98 Carbon Dioxide 28 Anion Gap 9 BUN 26 H Creatinine 0.94 Est GFR ( Amer) > 60 Est GFR (Non-Af Amer) 56 L Glucose 110 Calcium 8.9 09/04/17 09/04/17 09/04/17 00:18 00:18 06:15 Creatine Kinase 34 53 CK-MB (CK-2) 1.30 Troponin I 0.015 NT-Pro-B Natriuret Pep 09/04/17 09/04/17 09/04/17 06:15 13:00 13:00 Creatine Kinase 57 CK-MB (CK-2) 1.45 1.28 Troponin I 0.026 0.027 NT-Pro-B Natriuret Pep 09/07/17 09/08/17 07:35 08:12 Creatine Kinase CK-MB (CK-2) Troponin I NT-Pro-B Natriuret Pep 5620 H 4500 H Impressions: Chest X-Ray 09/03/17 18:03
[2017-09-08] MEDS: KETOROLAC TROMETHAMINE INJ/PF 30 MG/1 ML SDV IV PRN (13:13)
[2017-09-08 16:21] VITALS: BP 152/59
[2017-09-08] MEDS ORDERED: PHARMACY COMMUNICATION ORDER MC SCH (22:00)
== END 2017-09-08 16:30 | DRG 292 ==
LOC: ER 17:54 → EH 20:22 → 4N 09-04 00:06
PROVIDERS: ADMIT Internal Medicine; ATTEND Internal Medicine
PROC: 5A09557 Assistance with Respiratory Ventilation, Greater than 96 Consecutive Hours, Continuous Positive Airway Pressure (ICD-10-PCS; principal; 2017-09-03)
DX: I11.0 Hypertensive heart disease with heart failure (principal); J44.1 Chronic obstructive pulmonary disease with (acute) exacerbation; L97.819 Non-pressure chronic ulcer of other part of right lower leg with unspecified severity; L97.829 Non-pressure chronic ulcer of other part of left lower leg with unspecified severity; L03.116 Cellulitis of left lower limb; L03.115 Cellulitis of right lower limb; I50.33 Acute on chronic diastolic (congestive) heart failure; G89.29 Other chronic pain; I50.9 Heart failure, unspecified; I25.10 Atherosclerotic heart disease of native coronary artery without angina pectoris; Z66 Do not resuscitate; I83.018 Varicose veins of right lower extremity with ulcer other part of lower leg; I83.028 Varicose veins of left lower extremity with ulcer other part of lower leg; F17.200 Nicotine dependence, unspecified, uncomplicated; Z95.810 Presence of automatic (implantable) cardiac defibrillator; Z88.2 Allergy status to sulfonamides; Z88.0 Allergy status to penicillin; Z88.7 Allergy status to serum and vaccine
CPT/HCPCS: 36415; 71010; 80048; 80053; 82550; 82553; 82803; 83605; 83690; 83880; 84443; 84484; 85025; 85027; 85610; 85730; 87040; 93005; 93010; 93306; 94640; 94660; 94667; 94668; 94799; 96365; 96375; 99291; G8978-GP; G8979-GP; J0360; J1644; J1885; J1940; J2930; J3370; J3490; J7512; J7620

== ENCOUNTER 2020-08-26 09:25 | Inpatient (IN) | payer MEDICARE ==
[2020-08-26] MEDS ORDERED: ACETAMINOPHEN 325 MG TABLET PO ONE (09:54)
[2020-08-26] MEDS ORDERED: CYCLOBENZAPRINE HCL 10 MG TABLET PO ONE (09:54)
[2020-08-26] MEDS ORDERED: LIDOCAINE 5% (700 MG) TRANSDERMAL ADH..PATCH TP ONE (09:54)
[2020-08-26] MEDS ORDERED: IBUPROFEN 400 MG TABLET PO ONE (09:54)
--- NOTE | 2020-08-26 09:58 | ER Document Report ---
ED General - General Chief Complaint: Hip Pain Stated Complaint: RIGHT HIP PAIN Time Seen by Provider: 08/26/20 09:49 Notes: 89-year-old female coming from [facility] with baseline dementia muscle wasting and generally poor health presents with right hip pain. She is quite demented but gestures to the right anterolateral hip. She is sitting in a contracted fashion bent at the hip. There is no reports of trauma fever although everyone in the facility is currently a person under investigation for COVID-19. TRAVEL OUTSIDE OF THE [place] IN LAST 30 DAYS: No - Related Data Allergies/Adverse Reactions: Influenza Virus Vaccines [Influenza Virus Vaccine] Allergy (Intermediate, Verified 08/26/20 10:19) violently ill pneumococcal vaccine [Pneumococcal Vaccine] Allergy (Intermediate, Verified 08/26/20 10:19) violently ill Sulfa (Sulfonamide Antibiotics) Allergy (Intermediate, Verified 08/26/20 10:19) tound splits open Penicillins Allergy (Mild, Verified 08/26/20 10:19) Hives Past Medical History - General Information source: Emergency Med Personnel Cannot obtain history due to: Dementia - Social History Smoking Status: Unknown if Ever Smoked Family History: CAD, COPD - Past Medical History Cardiac Medical History: Reports: Hx Coronary Artery Disease, Hx Hypertension Denies: Hx Atrial Fibrillation, Hx Congestive Heart Failure, Hx Heart Attack, Hx Hypercholesterolemia, Hx Peripheral Vascular Disease, Hx Heart Murmur Pulmonary Medical History: Reports: Hx Bronchitis, Hx COPD Denies: Hx Asthma, Hx Pneumonia, Hx Tuberculosis Neurological Medical History: Denies: Hx Cerebrovascular Accident, Hx Seizures Renal/ Medical History: Reports: Hx Kidney Stones. Denies: Hx Peritoneal Dialysis Musculoskeletal Medical History: Reports Hx Arthritis, Denies Hx Fibromyalgia, Denies Hx Muscular Dystrophy Psychiatric Medical History: Reports: Hx Anxiety Traumatic Medical History: Reports: Hx Fractures - left hip x 1 yr Past Surgical History: Reports: Hx Pacemaker - Immunizations Hx Diphtheria, Pertussis, Tetanus Vaccination: Yes Review of Systems - Review of Systems Notes: REVIEW OF SYSTEMS PHYSICAL EXAMINATION General: Elderly and frail Head: Atraumatic, normocephalic ENT: Mouth normal, oropharynx moist, no exudates or tonsillar enlargement Eyes: Conjunctiva normal, pupils equal, lids normal Neck: No JVD, supple, no guarding CVS: Normal rate, regular rhythm, no murmurs Resp: No resp distress, equal and normal breath sounds bilaterally GI: Nondistended, soft, no tenderness to palpation, no rebound or guarding Ext: Contracted and flexed hips with extreme symmetric muscle wasting and pain on range of motion of the right hip. Distally good pulses although there is some purpura and wasting no edema. ext Back: No CVA or midline TTP Skin: No rash, warm Lymphatic: No lymphadeopathy noted Neuro: Awake, alert. Face symmetric. Demented. Cognitively impaired. Physical Exam - Vital signs Vitals: Temp BP Pulse Ox 97.6 F 146/48 H 94 08/26/20 10:01 08/26/20 10:01 08/26/20 10:01 Course - Re-evaluation Re-evalutation: 08/26/20 19:39 Hip pain. Apparently later on found the patient was found on the ground. Her x-ray confirms a hip fracture and pubic ramus fracture. Hemodynamically stable. Labs other than white count are normal. COVID-[address] with Dr. Singh who recommends hospital admission and will consult regarding hip fracture fixation. Discussed with hospitalist regarding admission. - Vital Signs Vital signs: Temp Pulse Resp BP Pulse Ox 97.7 F 60 16 177/66 H 94 08/26/20 16:16 08/26/20 16:16 08/26/20 16:16 08/26/20 16:16 08/26/20 16:16 - Laboratory Result Diagrams: 08/26/20 11:25 08/26/20 11:25 Laboratory results interpreted by me: 08/26/20 08/26/20 11:25 11:25 WBC 17.2 H Lymph % (Auto) 8.8 L Absolute Neuts (auto) 13.9 H Seg Neutrophils % 80.8 H Sodium 133.9 L Chloride 96 L Carbon Dioxide 35 H Anion Gap 3 L BUN 27 H - Diagnostic Test Radiology reviewed: Image reviewed, Reports reviewed Discharge - Discharge Clinical Impression: Closed right hip fracture Qualifiers: Encounter type: initial encounter Qualified Code(s): S72.001A - Fracture of unspecified part of neck of right femur, initial encounter for closed fracture Fracture of superior pubic ramus Qualifiers: Encounter type: initial encounter Fracture type: closed Laterality: right Qualified Code(s): S32.511A - Fracture of superior rim of right pubis, initial encounter for closed fracture Clinical Impression: (Ruled Out): Viral syndrome Condition: Fair Disposition: ADMITTED OBSERVATION Admitting Provider: Frank (Hospitalist) Unit Admitted: Medical Floor
--- NOTE | 2020-08-26 10:21 | RADIOLOGY REPORT (SQ) ---
EXAM DESCRIPTION: HIP RIGHT AP/LATERAL IMAGES COMPLETED DATE/TIME: 08/26/2020 10:00 am REASON FOR STUDY: bed 9 from [facility])-fall tenderness COMPARISON: 11/16/2016 NUMBER OF VIEWS: Two views. TECHNIQUE: AP pelvis and additional frog legview of the right hip. LIMITATIONS: None. FINDINGS: MINERALIZATION: Severe osteopenia. RIGHT HIP: Concerning for impacted subcapital fracture. Difficult to see because of the severe osteo penia. Possible superior pubic ramus fracture. LEFT HIP: No fracture or dislocation. No worrisome bone lesions. Limited views. PUBIS AND ISCHIUM: No fracture. PELVIS: No fracture. SACRUM: No fracture or dislocation. No worrisome bone lesions. LOWER LUMBAR SPINE: Degenerative changes SOFT TISSUES: No findings. OTHER: No other significant finding. IMPRESSION: Possible impacted subcapital fracture right hip, and superior pubic ramus fracture. COMMENT: Recommend CT pelvis. TECHNICAL DOCUMENTATION: JOB ID: [id number] 2010 [employer]- All Rights Reserved Reading location - IP/workstation name: [email or web address]
[2020-08-26] MEDS ORDERED: FENTANYL CITRATE INJ/PF 100 MCG/2 ML AMPUL IV ONE (11:48)
[2020-08-26 12:01] LABS: ABSOLUTE BASOPHILS # (AUTO) 0.2 10^3/uL (0.0-0.2); ABSOLUTE EOSINOPHILS # (AUTO) 0.2 10^3/uL (0.0-0.6); ABSOLUTE LYMPHOCYTES (AUTO) 1.5 10^3/uL (0.5-4.7); ABSOLUTE MONOCYTES (AUTO) 1.4 10^3/uL (0.1-1.4); ABSOLUTE NEUT (AUTO) 13.9 10^3/uL (1.7-8.2); BASOPHILS % (AUTO) 0.9 % (0-2); EOSINOPHILS % (AUTO) 1.3 % (0-6); HEMATOCRIT 41.5 % (36.0-47.0); HEMOGLOBIN 13.8 g/dL (12.0-15.5); LYMPHOCYTES % (AUTO) 8.8 % (13-45); MEAN CORPUSCULAR HEMOGLOBIN 29.9 pg (27.0-33.4); MEAN CORPUSCULAR HGB CONC 33.3 g/dL (32.0-36.0); MEAN CORPUSCULAR VOLUME 90 fl (80-97); MONOCYTES % (AUTO) 8.2 % (3-13); PLATELET COUNT 317 10^3/uL (150-450); RED BLOOD COUNT 4.62 10^6/uL (3.72-5.28); RED CELL DISTRIBUTION WIDTH 13.9 % (11.5-14.0); SEGMENTED NEUTROPHILS % (AUTO) 80.8 % (42-78); TOTAL CELLS COUNTED % (AUTO) 100 %; WHITE BLOOD COUNT 17.2 10^3/uL (4.0-10.5)
[2020-08-26 12:17] LABS: BLOOD UREA NITROGEN 27 mg/dL (7-20); CALCIUM 9.4 mg/dL (8.4-10.2); CARBON DIOXIDE 35 mmol/L (22-30); CHLORIDE 96 mmol/L (98-107); GLUCOSE 96 mg/dL (75-110); POTASSIUM 4.3 mmol/L (3.6-5.0)
[2020-08-26 12:20] LABS: ANION GAP 3 (5-19)
[2020-08-26] MEDS ORDERED: IBUPROFEN 600 MG TABLET PO ONE (13:40)
[2020-08-26] MEDS ORDERED: MORPHINE SULFATE 10 MG/ML INJ IV ONE (15:37)
--- NOTE | 2020-08-26 16:52 | RADIOLOGY REPORT (SQ) ---
EXAM DESCRIPTION: CT PELVIS WITHOUT IMAGES COMPLETED DATE/TIME: 08/26/2020 4:30 pm REASON FOR STUDY: r hip and ramus fxs COMPARISON: Right hip films 08/26/2020 TECHNIQUE: CT scan of the pelvis performed without intravenous or oral contrast. Images reviewed wi th soft tissue and bone windows. Reconstructed coronal and sagittal MPR images reviewed. All images stored on PACS. All CT scanners at this facility use dose modulation, iterative reconstruction, and/or weight based d osing when appropriate to reduce radiation dose to as low as reasonably achievable (ALARA). [facility]: Dose Right [facility]: CareDose [facility]: Dose Right [facility]: Teradose 4D [facility]: [employer] RADIATION DOSE: CT Rad equipment meets quality standard of care and radiation dose reduction techniq ues were employed. CTDIvol: 10.3 mGy. DLP: 554 mGy-cm. mGy. LIMITATIONS: None. FINDINGS: Bones are osteoporotic. Acute comminuted intertrochanteric fracture, right proximal femur with mild varus angulation. This b est shown on coronal reconstruction images 37 through 47. No other acute fractures are identified. Diffuse lower lumbar facet arthropathy and disc bulging causing high-grade central canal stenosis at L4-5. Unruptured infrarenal abdominal aortic aneurysm, 3.7 x 3.5 cm in greatest transverse and AP diameter. No free pelvic fluid. Phillips catheter drains the urinary bladder. IMPRESSION: Acute comminuted right proximal femoral intertrochanteric fracture with mild varus angul ation. No other fractures of the visualized bony pelvis or left hip. TECHNICAL DOCUMENTATION: JOB ID: [id number] Quality ID # [id number]: Final reports with documentation of one or more dose reduction techniques (e.g., Au tomated exposure control, adjustment of the mA and/or kV according to patient size, use of iterative reconstruction technique) 2010 [employer]- All Rights Reserved Reading location - IP/workstation name: [id number]
[2020-08-26] MEDS ORDERED: (PENDING PHARMACY ID) (Diclofenac Sodium [Diclofenac Sodium] 100 GM Gel..Gram.) TOP PRN ×3 (17:32→19:08)
[2020-08-26] MEDS ORDERED: (PENDING PHARMACY ID) (Diclofenac Sodium [Diclofenac Sodium] 100 GM Gel..Gram.) TP PRN (17:32)
--- NOTE | 2020-08-26 17:43 | PDOC H&P ---
History of Present Illness Admission Date/PCP: 08/26/20 14:28 JONNY RUSSELL MD Patient complains of: right hip pain History of Present Illness: JAIR WHITE is a 89 year old female who has multiple medical problems. She lives in [facility]. Patient sustained a mechanical fall and suffered severe right hip pain. She was transferred to the emergency room. Work-up shows right intertrochanteric femur fracture. Orthopedic surgeon consulted and recommended admission for surgical intervention. Past Medical History Cardiac Medical History: Reports: Coronary Artery Disease, Hypertension Pulmonary Medical History: Reports: Bronchitis, Chronic Obstructive Pulmonary Disease (COPD) Musculoskeltal Medical History: Reports: Arthritis Past Surgical History Past Surgical History: Reports: Pacemaker Social History Smoking Status: Current Some Day Smoker Electronic Cigarette use?: No Frequency of Alcohol Use: None Hx Recreational Drug Use: No Drugs: None Hx Prescription Drug Abuse: No - Advance Directive Resuscitation Status: Do Not Resuscitate Family History Family History: CAD, COPD Parental Family History Reviewed: Yes Children Family History Reviewed: NA Sibling(s) Family History Reviewed.: NA Medication/Allergy Home Medications: Amlodipine Besylate [Norvasc 10 mg Tablet] 10 mg PO DAILY 08/26/20 Ascorbic Acid [Vitamin C 500 mg Tablet] 500 mg PO DAILY 08/26/20 Aspirin [Ecotrin 81 mg EC Tablet] 81 mg PO DAILY 08/26/20 Atorvastatin Calcium [Lipitor 10 mg Tablet] 10 mg PO QHS 08/26/20 Diclofenac Sodium 1 gm TOP TIDP PRN 08/26/20 Diclofenac Sodium 1 gm TP QIDP PRN 08/26/20 Fluticasone/Umeclidin/Vilanter [Trelegy 100-62.5-25 Mcg Ellipta 14 Dose/Dpi] 1 each IH DAILY 08/26/20 Furosemide [Lasix 20 mg Tablet] 20 mg PO QAM 08/26/20 Lorazepam [Ativan 0.5 mg Tablet] 0.5 mg PO Q8HP PRN 08/26/20 Multivitamin [Tab-A-Barry (Multiple Vitamin) Tablet] 1 tab PO DAILY 08/26/20 Ropinirole HCl [Requip 0.25 Mg Tablet] 0.5 mg PO QHS 08/26/20 Sertraline HCl [Zoloft 50 mg Tablet] 75 mg PO DAILY 08/26/20 Telmisartan/Hydrochlorothiazid [Telmisartan-Hctz 40-12.5 mg Tb] 1 each PO DAILY 08/26/20 Allergies/Adverse Reactions: Influenza Virus Vaccines [Influenza Virus Vaccine] Allergy (Intermediate, Verified 08/26/20 10:19) violently ill pneumococcal vaccine [Pneumococcal Vaccine] Allergy (Intermediate, Verified 08/26/20 10:19) violently ill Sulfa (Sulfonamide Antibiotics) Allergy (Intermediate, Verified 08/26/20 10:19) tound splits open Penicillins Allergy (Mild, Verified 08/26/20 10:19) Hives Review of Systems All systems: reviewed and no additional remarkable complaints except as stated Physical Exam Vital Signs: Temp Pulse Resp BP Pulse Ox 97.7 F 60 16 177/66 H 94 08/26/20 16:16 08/26/20 16:16 08/26/20 16:16 08/26/20 16:16 08/26/20 16:16 Intake & Output 08/25/20 08/26/20 08/27/20 06:59 06:59 06:59 Weight 87 lb 4.849 oz General appearance: PRESENT: cooperative, mild distress, thin Head exam: PRESENT: atraumatic, normocephalic Eye exam: PRESENT: EOMI, PERRLA. ABSENT: nystagmus Mouth exam: PRESENT: moist, neck supple Neck exam: ABSENT: meningismus, tenderness, tracheostomy Respiratory exam: PRESENT: clear to auscultation jerry, symmetrical. ABSENT: accessory muscle use Cardiovascular exam: PRESENT: RRR, +S1, +S2 GI/Abdominal exam: PRESENT: normal bowel sounds, soft. ABSENT: tenderness Extremities exam: PRESENT: other - Right lower extremity shortened and externally rotated. Neurological exam: PRESENT: alert, awake, CN II-XII grossly intact Results Laboratory Results: 08/26/20 11:25 08/26/20 11:25 08/26/20 08/26/20 08/26/20 11:25 11:25 11:25 WBC 17.2 H RBC 4.62 Hgb 13.8 Hct 41.5 MCV 90 MCH 29.9 MCHC 33.3 RDW 13.9 Plt Count 317 Seg Neutrophils % 80.8 H Sodium 133.9 L Potassium 4.3 Chloride 96 L Carbon Dioxide 35 H Anion Gap 3 L BUN 27 H Creatinine 0.84 Est GFR ( Amer) > 60 Glucose 96 Calcium 9.4 Blood Type O POSITIVE Antibody Screen NEGATIVE Impressions: Hip/Pelvis X-Ray 08/26/20 00:00 IMPRESSION: Possible impacted subcapital fracture right hip, and superior pubic ramus fracture. Pelvis CT 08/26/20 14:21 IMPRESSION: Acute comminuted right proximal femoral intertrochanteric fracture with mild varus angulation. No other fractures of the visualized bony pelvis or left hip. Assessment and Plan - Diagnosis (1) Closed right hip fracture Is this a current diagnosis for this admission?: Yes Plan: Admit to surgical floor. Pain medications as needed. Orthopedic surgery consultation. VT prophylaxis. (2) Chronic diastolic HF (heart failure) Is this a current diagnosis for this admission?: Yes Plan: Continue Lasix. (3) Hypertension Is this a current diagnosis for this admission?: Yes Plan: Continue home medications. Monitor blood pressure. (5) Coronary artery disease Is this a current diagnosis for this admission?: Yes Plan: No exacerbation. Continue home medications. (6) Pacemaker Is this a current diagnosis for this admission?: Yes - Plan Summary Summary: No objection to proceed with surgical intervention. Benefits outweigh the risks. - Time Anticipated Discharge Disposition: Home, Self Care Anticipated Discharge Timeframe: within 72 hours
--- NOTE | 2020-08-26 17:53 | PDOC CONSULTATION ---
Consultation Consult Date: 08/26/20 Attending physician:: CHOCO LACY Provider Consulted: MIKAEL BEAUCHAMP Consult reason:: 1. Right hip pain. 2. Right hip displaced basicervical hip fracture History of Present Illness Admission Date/PCP: 08/26/20 14:28 JONNY RUSSELL MD Patient complains of: Right hip pain History of Present Illness: JAIR WHITE is a 89 year old female with coronary artery disease, hypertension, COPD, and mild dementia. The patient sustained an unwitnessed fall at a nursing facility. Staff found the patient on the floor complaining of right hip pain and inability to ambulate. The patient was brought to the emergency room at [facility]. Plain radiographs and CT scan of the right hip demonstrate a displaced basicervical fracture. Past Medical History Cardiac Medical History: Reports: Coronary Artery Disease, Hypertension Denies: Atrial Fibrillation, Congestive Heart Failure, Myocardial Infarction, Hyperlipidema, Peripheral Vascular Disease, Heart Murmur Pulmonary Medical History: Reports: Bronchitis, Chronic Obstructive Pulmonary Disease (COPD) Denies: Asthma, Pneumonia, Tuberculosis Neurological Medical History: Denies: Seizures Musculoskeltal Medical History: Reports: Arthritis Denies: Fibromyalgia Psychiatric Medical History: Denies: Depression Hematology: Denies: Anemia Past Surgical History Past Surgical History: Reports: Pacemaker Social History Smoking Status: Current Some Day Smoker Electronic Cigarette use?: No Frequency of Alcohol Use: None Hx Recreational Drug Use: No Drugs: None Hx Prescription Drug Abuse: No - Advance Directive Resuscitation Status: Do Not Resuscitate Family History Family History: CAD, COPD Parental Family History Reviewed: No Children Family History Reviewed: No Sibling(s) Family History Reviewed.: No Medication/Allergy Home Medications: Amlodipine Besylate [Norvasc 10 mg Tablet] 10 mg PO DAILY 08/26/20 Ascorbic Acid [Vitamin C 500 mg Tablet] 500 mg PO DAILY 08/26/20 Aspirin [Ecotrin 81 mg EC Tablet] 81 mg PO DAILY 08/26/20 Atorvastatin Calcium [Lipitor 10 mg Tablet] 10 mg PO QHS 08/26/20 Diclofenac Sodium 1 gm TOP TIDP PRN 08/26/20 Diclofenac Sodium 1 gm TP QIDP PRN 08/26/20 Fluticasone/Umeclidin/Vilanter [Trelegy 100-62.5-25 Mcg Ellipta 14 Dose/Dpi] 1 e ach IH DAILY 08/26/20 Furosemide [Lasix 20 mg Tablet] 20 mg PO QAM 08/26/20 Lorazepam [Ativan 0.5 mg Tablet] 0.5 mg PO Q8HP PRN 08/26/20 Multivitamin [Tab-A-Barry (Multiple Vitamin) Tablet] 1 tab PO DAILY 08/26/20 Ropinirole HCl [Requip 0.25 Mg Tablet] 0.5 mg PO QHS 08/26/20 Sertraline HCl [Zoloft 50 mg Tablet] 75 mg PO DAILY 08/26/20 Telmisartan/Hydrochlorothiazid [Telmisartan-Hctz 40-12.5 mg Tb] 1 each PO DAILY 08/26/20 Allergies/Adverse Reactions: Influenza Virus Vaccines [Influenza Virus Vaccine] Allergy (Intermediate, Verified 08/26/20 10:19) violently ill pneumococcal vaccine [Pneumococcal Vaccine] Allergy (Intermediate, Verified 08/26/20 10:19) violently ill Sulfa (Sulfonamide Antibiotics) Allergy (Intermediate, Verified 08/26/20 10:19) tound splits open Penicillins Allergy (Mild, Verified 08/26/20 10:19) Hives Review of Systems All systems: reviewed and no additional remarkable complaints except as stated - As per HPI Physical Exam Vital Signs: Temp Pulse Resp BP Pulse Ox 97.7 F 60 16 177/66 H 94 08/26/20 16:16 08/26/20 16:16 08/26/20 16:16 08/26/20 16:16 08/26/20 16:16 Intake & Output 08/25/20 08/26/20 08/27/20 06:59 06:59 06:59 Weight 39.6 kg General appearance: PRESENT: no acute distress, cooperative, thin Head exam: PRESENT: atraumatic, normocephalic Eye exam: PRESENT: EOMI, PERRLA Mouth exam: PRESENT: neck supple Neck exam: ABSENT: carotid bruit, JVD, lymphadenopathy, thyromegaly Respiratory exam: PRESENT: clear to auscultation jerry. ABSENT: rales, rhonchi, wheezes Cardiovascular exam: PRESENT: RRR. ABSENT: diastolic murmur, rubs, systolic murmur Pulses: PRESENT: +1 pedal pulses bilateral Rectal exam: PRESENT: deferred Gentrourinary exam: PRESENT: indwelling catheter Extremities exam: PRESENT: other - The patient maintains the right hip in a flexed and internally rotated position. Active or passive motion of the right hip causes the patient discomfort. The patient is able to dorsiflex and plantarflex the foot and ankle. Sensation is intact to touch. Neurological exam: PRESENT: alert, oriented to person, oriented to place Psychiatric exam: PRESENT: appropriate affect, normal mood. ABSENT: homicidal ideation, suicidal ideation Results Laboratory Results: 08/26/20 11:08/26/20 11:08/26/20 08/26/20 08/26/20 11: 11: 11: WBC 17.2 H RBC 4.62 Hgb 13.8 Hct 41.5 MCV 90 MCH 29.9 MCHC 33.3 RDW 13.9 Plt Count 317 Seg Neutrophils % 80.8 H Sodium 133.9 L Potassium 4.3 Chloride 96 L Carbon Dioxide 35 H Anion Gap 3 L BUN 27 H Creatinine 0.84 Est GFR ( Amer) > 60 Glucose 96 Calcium 9.4 Blood Type O POSITIVE Antibody Screen NEGATIVE Impressions: Hip/Pelvis X-Ray 08/26/20 00:00 IMPRESSION: Possible impacted subcapital fracture right hip, and superior pubic ramus fracture. Pelvis CT 08/26/20 14:21 IMPRESSION: Acute comminuted right proximal femoral intertrochanteric fracture with mild varus angulation. No other fractures of the visualized bony pelvis or left hip. Assessment & Plan - Time Time Spent: 30 to 50 Minutes Anticipated DC Timeframe: within 72 hours - Plan Summary Plan Summary: The patient is a pleasant but frail 89-year-old woman with mild dementia. She sustained an unwitnessed fall at the nursing facility where she lives resulting in a displaced basicervical fracture of the right hip. The patient also has an elevated white count. I have ordered a urinalysis to assess for possible UTI. I have recommended open reduction internal fixation of the right hip with an intramedullary gamma nail. Risk, benefits, and alternatives were discussed with the patient as well as with her son via telephone. Risks include the risk of with anesthesia, the risk of infection, the risk of nonunion and malunion, the risk of injury to nerves and vessels and the possible need for additional surgical procedures. The patient as well as her son were given an opportunity for questions. All questions were answered to both of their satisfactions. Both agree and wish to proceed with surgical repair.
[2020-08-26] MEDS: ENOXAPARIN SODIUM INJ 40 MG/0.4 ML DISP.SYRIN SUBCUT SCH (18:31)
[2020-08-26] MEDS: MORPHINE SULFATE 10 MG/ML INJ IV PRN (21:41)
[2020-08-26] MEDS: ROPINIROLE HCL 0.25 MG TABLET PO SCH (21:41)
[2020-08-26] MEDS: ATORVASTATIN CALCIUM 10 MG TABLET PO SCH (21:41)
[2020-08-27] MEDS: MORPHINE SULFATE 10 MG/ML INJ IV PRN ×4 (01:40→18:12)
[2020-08-27] MEDS ORDERED: CEFAZOLIN 2 GM/D5W RTU 2 GM/50 ML RTUPB IV ONE (04:00)
[2020-08-27] MEDS: LORAZEPAM 0.5 MG TABLET PO PRN ×2 (04:34→21:22)
[2020-08-27 05:18] LABS: HEMATOCRIT 37.4 % (36.0-47.0); HEMOGLOBIN 12.5 g/dL (12.0-15.5); MEAN CORPUSCULAR HGB CONC 33.4 g/dL (32.0-36.0); MEAN CORPUSCULAR VOLUME 90 fl (80-97); PLATELET COUNT 284 10^3/uL (150-450); RED BLOOD COUNT 4.17 10^6/uL (3.72-5.28); RED CELL DISTRIBUTION WIDTH 14.1 % (11.5-14.0); WHITE BLOOD COUNT 14.3 10^3/uL (4.0-10.5)
[2020-08-27 05:41] LABS: BLOOD UREA NITROGEN 25 mg/dL (7-20); CALCIUM 8.8 mg/dL (8.4-10.2); GLUCOSE 95 mg/dL (75-110); POTASSIUM 4.1 mmol/L (3.6-5.0)
[2020-08-27 05:48] LABS: CARBON DIOXIDE 32 mmol/L (22-30); CHLORIDE 97 mmol/L (98-107)
[2020-08-27 05:56] LABS: ANION GAP 4 (5-19)
[2020-08-27] MEDS ORDERED: FENTANYL CITRATE INJ/PF 100 MCG/2 ML AMPUL ONE (07:50)
[2020-08-27] MEDS ORDERED: KETAMINE HCL INJ 500 MG/10 ML VIAL ONE (07:50)
[2020-08-27] MEDS ORDERED: LIDOCAINE 2% INJ-PF (20 MG/ML) 10 ML AMPUL ONE (07:50)
[2020-08-27] MEDS ORDERED: PROPOFOL INJ 200 MG/20 ML VIAL IV ONE (07:51)
[2020-08-27] MEDS ORDERED: ONDANSETRON HCL INJ/PF 4 MG/2 ML SDV ONE (07:51)
[2020-08-27] MEDS ORDERED: EPHEDRINE SULFATE INJ 50 MG/1 ML AMPULE ONE (07:51)
[2020-08-27] MEDS ORDERED: MIDAZOLAM 2 MG/2 ML INJ ONE (07:51)
[2020-08-27] MEDS ORDERED: CEFAZOLIN 2 GM/D5W RTU 2 GM/50 ML RTUPB IV PRN (08:00)
[2020-08-27] MEDS ORDERED: TRANEXAMIC ACID INJ/PF 1,000 MG/10 ML SDV IV ONE (08:00)
[2020-08-27] MEDS ORDERED: TRANEXAMIC ACID INJ/PF 1,000 MG/10 ML SDV IV PRN (08:00)
[2020-08-27] MEDS ORDERED: TRANEXAMIC ACID INJ/PF 1,000 MG/10 ML SDV ONE (09:11)
[2020-08-27] MEDS ORDERED: MORPHINE SULFATE 10 MG/ML INJ IV PRN (09:51)
[2020-08-27] MEDS ORDERED: DIPHENHYDRAMINE HCL 50 MG/ML VIAL IV PRN (09:51)
[2020-08-27] MEDS ORDERED: ONDANSETRON HCL INJ/PF 4 MG/2 ML SDV IV PRN (09:51)
[2020-08-27] MEDS ORDERED: FENTANYL CITRATE INJ/PF 100 MCG/2 ML AMPUL IV PRN ×3 (09:51)
[2020-08-27] MEDS ORDERED: OXYCODONE-ACETAMINOPHEN 5-325 MG TABLET PO PRN ×2 (09:51)
[2020-08-27] MEDS ORDERED: ASPIRIN 81 MG TABLET, ENT COATED PO SCH (10:00)
--- NOTE | 2020-08-27 10:17 | Operative Report ---
Operative Report DATE OF SURGERY: 08/27/20 PREOPERATIVE DIAGNOSIS: Right hip displaced basicervical fracture POSTOPERATIVE DIAGNOSIS: Right hip displaced basicervical fracture OPERATION: Open reduction internal fixation with cephalomedullary gamma nail SURGEON: MIKAEL BEAUCHAMP ANESTHESIA: Spinal COMPLICATIONS: None ESTIMATED BLOOD LOSS: 50 cc INTRAOPERATIVE FINDINGS: Same PROCEDURE: Indications for procedure: The patient is an 89-year-old woman with mild dementia. She sustained an unwitnessed fall resulting in a displaced basicervical fracture of the right hip. Description of procedure: Following the induction of a spinal anesthetic and administration of 2 g of Ancef, the patient was positioned supine on the fracture table. All bony prominences were padded. Traction was placed and proper alignment of the hip was restored. The right lower extremity was then prepped with ChloraPrep and draped in standard fashion. An incision was made proximal to the greater trochanter. Guidewire was placed under image intensification. Its position was checked and then overreamed. Reamings were sent to pathology to ensure that this was not a pathologic fracture. A ball- tipped guidewire was then placed down the shaft of the femur to the level of the knee. Its position was checked under image intensification, it was measured, and overreamed to a size 12. An 11 mm gamma nail was placed down the canal. Through the gamma nail guide, a guidewire was placed centrally within the femoral neck and head. This was overreamed and an 80 mm lag screw was placed. The lag screw was locked dynamically proximally. Image intensification was brought in which confirmed anatomic reduction of the fracture and correct placement of implants. Both wounds were copiously irrigated with normal saline. The fascia was reapproximated with 2-0 Vicryl. The subcutaneous tissue was closed with a running barbed 2-0 Vicryl suture. The skin was reapproximated with lyudmila. The patient tolerated the procedure well without complication was brought recovery room in stable condition.
[2020-08-27] MEDS ORDERED: NORMAL SALINE 1000 ML 1,000 ML IV PRN (11:26)
[2020-08-27] MEDS: ENOXAPARIN SODIUM INJ 40 MG/0.4 ML DISP.SYRIN SUBCUT SCH (12:07)
[2020-08-27] MEDS: HYDROCHLOROTHIAZIDE 12.5 MG TABLET PO SCH (12:12)
[2020-08-27] MEDS: FUROSEMIDE 20 MG TABLET PO SCH (12:13)
[2020-08-27] MEDS: AMLODIPINE BESYLATE 10 MG TABLET PO SCH (12:13)
[2020-08-27] MEDS: SERTRALINE HCL 50 MG TABLET PO SCH (12:13)
[2020-08-27] MEDS: LOSARTAN POTASSIUM 50 MG TABLET PO SCH (12:13)
[2020-08-27] MEDS: MULTIVITAMIN TABLET PO SCH (12:43)
[2020-08-27] MEDS: FLUTICASONE/UMECLIDIN/VILANTER 100-62.5-25 MCG/DOSE IH SCH (12:43)
[2020-08-27] MEDS: ASCORBIC ACID 500 MG TABLET PO SCH (12:44)
--- NOTE | 2020-08-27 14:43 | RADIOLOGY REPORT (SQ) ---
EXAM DESCRIPTION: NO CHG FLUORO; HIP RIGHT AP/LATERAL IMAGES COMPLETED DATE/TIME: 08/27/2020 2:14 pm REASON FOR STUDY: R HIP NAILING FLUOROSCOPY TIME: 0.8 minutes 7 digital fluoroscopic Images saved to PACS TECHNIQUE: Intra-operative images acquired during surgical procedure to evaluate progress. NUMBER OF IMAGES: 7 digital fluoroscopic images LIMITATIONS: None. FINDINGS: Intra procedural imaging and fluoro during ORIF right intertrochanteric femoral fracture w ith lag screw and long intramedullary nail. Good alignment please see the operative report for furth er details IMPRESSION: IMAGE(S) OBTAINED DURING PROCEDURE. COMMENT: Quality ID [id number]: Final reports for procedures using fluoroscopy that document radiation exp osure indices, or exposure time and number of fluorographic images (if radiation exposure indices are not available) Please consult full operative report of the attending physician for description of the procedure. TECHNICAL DOCUMENTATION: JOB ID: [id number] 2010 [employer]- All Rights Reserved COMPARISON: None. CT pelvis 08/26/2020 Reading location - IP/workstation name: [id number]
--- NOTE | 2020-08-27 14:43 | RADIOLOGY REPORT (SQ) ---
EXAM DESCRIPTION: NO CHG FLUORO; HIP RIGHT AP/LATERAL IMAGES COMPLETED DATE/TIME: 08/27/2020 2:14 pm REASON FOR STUDY: R HIP NAILING FLUOROSCOPY TIME: 0.8 minutes 7 digital fluoroscopic Images saved to PACS TECHNIQUE: Intra-operative images acquired during surgical procedure to evaluate progress. NUMBER OF IMAGES: 7 digital fluoroscopic images LIMITATIONS: None. FINDINGS: Intra procedural imaging and fluoro during ORIF right intertrochanteric femoral fracture w ith lag screw and long intramedullary nail. Good alignment please see the operative report for furth er details IMPRESSION: IMAGE(S) OBTAINED DURING PROCEDURE. COMMENT: Quality ID [id number]: Final reports for procedures using fluoroscopy that document radiation exp osure indices, or exposure time and number of fluorographic images (if radiation exposure indices are not available) Please consult full operative report of the attending physician for description of the procedure. TECHNICAL DOCUMENTATION: JOB ID: [id number] 2010 [employer]- All Rights Reserved COMPARISON: None. CT pelvis 08/26/2020 Reading location - IP/workstation name: [id number]
--- NOTE | 2020-08-27 17:31 | PDOC PROGRESS REPORT ---
Subjective Date:: 08/27/20 Subjective:: History of Present Illness: JAIR WHITE is a 89 year old female who has multiple medical problems. She lives in [facility]. Patient sustained a mechanical fall and suffered severe right hip pain. She was transferred to the emergency room. Work-up shows right intertrochanteric femur fracture. Orthopedic surgeon consulted and recommended admission for surgical intervention. History: 08/27/2020: Patient is status post ORIF of the right hip. Reason For Visit: HIP FIX Physical Exam Vital Signs: Temp Pulse Resp BP Pulse Ox 97.6 F 100 16 103/71 100 08/27/20 13:00 08/27/20 13:00 08/27/20 13:00 08/27/20 13:00 08/27/20 13:00 Intake & Output 08/26/20 08/27/20 08/28/20 06:59 06:59 06:59 Intake Total 600 Output Total 675 150 Balance -675 450 Weight 86 lb 3.212 oz Exam: General appearance: PRESENT: cooperative, mild distress, thin Head exam: PRESENT: atraumatic, normocephalic Eye exam: PRESENT: EOMI, PERRLA. ABSENT: nystagmus Mouth exam: PRESENT: moist, neck supple Neck exam: ABSENT: meningismus, tenderness, tracheostomy Respiratory exam: PRESENT: clear to auscultation jerry, symmetrical. ABSENT: accessory muscle use Cardiovascular exam: PRESENT: RRR, +S1, +S2 GI/Abdominal exam: PRESENT: normal bowel sounds, soft. ABSENT: tenderness Neurological exam: PRESENT: alert, awake, CN II-XII grossly intact Results Laboratory Results: 08/27/20 04:50 08/27/20 04:50 08/27/20 08/27/20 04:50 04:50 WBC 14.3 H RBC 4.17 Hgb 12.5 Hct 37.4 MCV 90 MCH 30.0 MCHC 33.4 RDW 14.1 H Plt Count 284 Sodium 133.1 L Potassium 4.1 Chloride 97 L Carbon Dioxide 32 H Anion Gap 4 L BUN 25 H Creatinine 0.77 Est GFR ( Amer) > 60 Glucose 95 Calcium 8.8 Impressions: Pelvis CT 08/26/20 14:21 IMPRESSION: Acute comminuted right proximal femoral intertrochanteric fracture with mild varus angulation. No other fractures of the visualized bony pelvis or left hip. Assessment and Plan - Diagnosis (1) Closed right hip fracture Qualifiers: Encounter type: initial encounter Qualified Code(s): S72.001A - Fracture of unspecified part of neck of right femur, initial encounter for closed fracture Is this a current diagnosis for this admission?: Yes (2) Chronic diastolic HF (heart failure) Is this a current diagnosis for this admission?: Yes (3) Hypertension Is this a current diagnosis for this admission?: Yes (5) Coronary artery disease Is this a current diagnosis for this admission?: Yes (6) Pacemaker Is this a current diagnosis for this admission?: Yes - Plan Summary Summary: (1) Closed right hip fracture Continue pain medications as needed. Status post ORIF today. VT prophylaxis per orthopedic surgery. (2) Chronic diastolic HF (heart failure) Continue Lasix. (3) Hypertension Continue home medications. Monitor blood pressure. (5) Coronary artery disease No exacerbation. Continue home medications. (6) Pacemaker - Time Anticipated Discharge Disposition: Home, Self Care Anticipated Discharge Timeframe: within 72 hours
[2020-08-27] MEDS: CEFAZOLIN SODIUM 2 GM in DEXTROSE 5%-WATER 100 ML IV SCH (17:46)
[2020-08-27] MEDS ORDERED: NICOTINE 21 MG/24 HR PATCH.TD24 TD ONE (19:30)
[2020-08-27] MEDS: TRAMADOL HCL 50 MG TABLET PO PRN (21:22)
[2020-08-27] MEDS: ROPINIROLE HCL 0.25 MG TABLET PO SCH (21:22)
[2020-08-27] MEDS: ATORVASTATIN CALCIUM 10 MG TABLET PO SCH (21:22)
[2020-08-28] MEDS: CEFAZOLIN SODIUM 2 GM in DEXTROSE 5%-WATER 100 ML IV SCH ×3 (01:25→17:02)
[2020-08-28] MEDS: MORPHINE SULFATE 10 MG/ML INJ IV PRN ×2 (01:46→17:51)
[2020-08-28 05:50] LABS: ABSOLUTE BASOPHILS # (AUTO) 0.1 10^3/uL (0.0-0.2); ABSOLUTE LYMPHOCYTES (AUTO) 1.3 10^3/uL (0.5-4.7); ABSOLUTE MONOCYTES (AUTO) 2.3 10^3/uL (0.1-1.4); ABSOLUTE NEUT (AUTO) 10.8 10^3/uL (1.7-8.2); BASOPHILS % (AUTO) 0.6 % (0-2); EOSINOPHILS % (AUTO) 0.3 % (0-6); HEMATOCRIT 35.1 % (36.0-47.0); HEMOGLOBIN 11.5 g/dL (12.0-15.5); LYMPHOCYTES % (AUTO) 9.1 % (13-45); MEAN CORPUSCULAR HEMOGLOBIN 29.4 pg (27.0-33.4); MEAN CORPUSCULAR HGB CONC 32.7 g/dL (32.0-36.0); MEAN CORPUSCULAR VOLUME 90 fl (80-97); MONOCYTES % (AUTO) 15.7 % (3-13); PLATELET COUNT 256 10^3/uL (150-450); RED BLOOD COUNT 3.91 10^6/uL (3.72-5.28); RED CELL DISTRIBUTION WIDTH 13.6 % (11.5-14.0); SEGMENTED NEUTROPHILS % (AUTO) 74.3 % (42-78); TOTAL CELLS COUNTED % (AUTO) 100 %; WHITE BLOOD COUNT 14.5 10^3/uL (4.0-10.5)
[2020-08-28] MEDS: TRAMADOL HCL 50 MG TABLET PO PRN ×2 (06:02→23:04)
[2020-08-28] MEDS: LORAZEPAM 0.5 MG TABLET PO PRN (06:02)
[2020-08-28 06:35] LABS: ANION GAP 8 (5-19); BLOOD UREA NITROGEN 19 mg/dL (7-20); CALCIUM 8.4 mg/dL (8.4-10.2); CARBON DIOXIDE 27 mmol/L (22-30); CHLORIDE 99 mmol/L (98-107); GLUCOSE 115 mg/dL (75-110); POTASSIUM 3.6 mmol/L (3.6-5.0)
[2020-08-28] MEDS: FUROSEMIDE 20 MG TABLET PO SCH (09:44)
[2020-08-28] MEDS: TRANEXAMIC ACID INJ/PF 1,000 MG/10 ML SDV IV ONE ×2 (09:46→09:59)
[2020-08-28] MEDS: ASPIRIN 325 MG TABLET PO SCH (09:53)
[2020-08-28] MEDS: LOSARTAN POTASSIUM 50 MG TABLET PO SCH (09:53)
[2020-08-28] MEDS: ASCORBIC ACID 500 MG TABLET PO SCH (09:53)
[2020-08-28] MEDS: MULTIVITAMIN TABLET PO SCH (09:53)
[2020-08-28] MEDS: SERTRALINE HCL 50 MG TABLET PO SCH (09:53)
[2020-08-28] MEDS: AMLODIPINE BESYLATE 10 MG TABLET PO SCH (09:54)
[2020-08-28] MEDS: HYDROCHLOROTHIAZIDE 12.5 MG TABLET PO SCH (09:54)
[2020-08-28] MEDS: ENOXAPARIN SODIUM INJ 40 MG/0.4 ML DISP.SYRIN SUBCUT SCH (09:54)
[2020-08-28] MEDS: FLUTICASONE/UMECLIDIN/VILANTER 100-62.5-25 MCG/DOSE IH SCH (10:02)
--- NOTE | 2020-08-28 10:33 | PDOC PROGRESS REPORT ---
Subjective Date:: 08/28/20 Subjective:: The patient is resting comfortably. She has mild dementia but she is responding appropriately to questions. Reason For Visit: HIP FIX Postoperative day #1 status post cephalomedullary nail for right hip basicervical fracture Physical Exam Vital Signs: Temp Pulse Resp BP Pulse Ox 97.5 F 65 18 104/40 L 100 08/28/20 08:00 08/28/20 08:00 08/28/20 08:00 08/28/20 08:00 08/28/20 08:00 Intake & Output 08/27/20 08/28/20 08/29/20 06:59 06:59 06:59 Intake Total 840 Output Total 675 1250 Balance -675 -410 Weight 39.1 kg 39.1 kg General appearance: PRESENT: no acute distress Head exam: PRESENT: atraumatic, normocephalic Neck exam: PRESENT: full ROM Respiratory exam: PRESENT: clear to auscultation jerry. ABSENT: rales, rhonchi, wheezes Cardiovascular exam: PRESENT: RRR. ABSENT: diastolic murmur, rubs, systolic murmur Rectal exam: PRESENT: deferred Musculoskeletal exam: PRESENT: other - The surgical wounds are intact with minimal drainage. The patient has no pain with passive motion of the right hip. The patient is able to dorsiflex and plantarflex her foot and ankle. Sensation is intact to touch. 1+ DP pulse present. PT pulses nonpalpable. Results Laboratory Results: 08/28/20 05:35 08/28/20 05:35 08/28/20 08/28/20 05:35 05:35 WBC 14.5 H RBC 3.91 Hgb 11.5 L Hct 35.1 L MCV 90 MCH 29.4 MCHC 32.7 RDW 13.6 Plt Count 256 Seg Neutrophils % 74.3 Sodium 134.4 L Potassium 3.6 Chloride 99 Carbon Dioxide 27 Anion Gap 8 BUN 19 Creatinine 0.68 Est GFR ( Amer) > 60 Glucose 115 H Calcium 8.4 Impressions: Pelvis CT 08/26/20 14:21 IMPRESSION: Acute comminuted right proximal femoral intertrochanteric fracture with mild varus angulation. No other fractures of the visualized bony pelvis or left hip. Fluoroscopy 08/27/20 00:00 IMPRESSION: IMAGE(S) OBTAINED DURING PROCEDURE. Hip/Pelvis X-Ray 08/27/20 00:00 IMPRESSION: IMAGE(S) OBTAINED DURING PROCEDURE. Assessment & Plan - Diagnosis (1) Displaced fracture of base of neck of right femur, initial encounter for closed fracture Is this a current diagnosis for this admission?: Yes (2) Acute right hip pain Is this a current diagnosis for this admission?: Yes - Time Anticipated Discharge Disposition: Residential Facility Anticipated Discharge Timeframe: when bed available Critical Time spent with patient: 15-24 minutes Medications reviewed and adjusted accordingly: Yes - Plan Summary Plan Summary: Postoperative day #1 status post cephalomedullary medullary nail for right hip basicervical fracture The patient is doing quite well. She will complete her 24 hours of periop erative antibiotics today. Physical therapy has been ordered: She is weightbearing as tolerated with assist device. The patient is a relatively frail elderly woman. I have ordered aspirin for DVT prophylaxis. I do think the risk of low molecular weight heparin and its bleeding complications would be too high risk for this frail woman. The patient is stable for discharge from an orthopedic standpoint. She would likely benefit from fdc facility placement. She should follow-up in my office 2 weeks post discharge for a wound check and staple removal.
[2020-08-28] MEDS: NICOTINE 21 MG/24 HR PATCH.TD24 TD SCH (17:02)
--- NOTE | 2020-08-28 17:05 | PDOC PROGRESS REPORT ---
Subjective Subjective:: Per Previous Physician: "JAIR WHITE is a 89 year old female who has multiple medical problems. She lives in long term [facility]. Patient sustained a mechanical fall and suffered severe right hip pain. She was transferred to the emergency room. Work-up shows right intertrochanteric femur fracture. Orthopedic surgeon consulted and recommended admission for surgical intervention. History: 08/27/2020: Patient is status post ORIF of the right hip." 08/28/2020 Patient seems to be comfortable today with her pain well controlled. She is working with physical therapy and will need to go to rehab at discharge. She has no new complaints today. She will be discharged to SNF tomorrow. She is on Lovenox for DVT prophylaxis Reason For Visit: HIP FIX Physical Exam Vital Signs: Temp Pulse Resp BP Pulse Ox 97.6 F 61 16 107/36 L 95 08/28/20 15:41 08/28/20 15:41 08/28/20 15:41 08/28/20 15:41 08/28/20 15:41 Intake & Output 08/27/20 08/28/20 08/29/20 06:59 06:59 06:59 Intake Total 840 480 Output Total 675 1250 200 Balance -675 -410 280 Weight 39.1 kg 39.1 kg Exam: General appearance: PRESENT: no acute distress, frail and chronically ill- appearing, states she has no intention of stopping smoking Head exam: PRESENT: atraumatic, normocephalic Eye exam: PRESENT: conjunctiva pink. ABSENT: scleral icterus Mouth exam: PRESENT: moist Respiratory exam: PRESENT: clear to auscultation jerry. ABSENT: rales, rhonchi, wheezes Cardiovascular exam: PRESENT: RRR. ABSENT: diastolic murmur, rubs, systolic murmur GI/Abdominal exam: PRESENT: normal bowel sounds, soft. ABSENT: distended, guarding, mass, organolmegaly, rebound, tenderness Neurological exam: PRESENT: alert, awake, oriented to person Psychiatric exam: PRESENT: appropriate affect, normal mood Skin exam: PRESENT: dry, intact, warm Musculoskeletal: Right hip surgical site tender, mild edema Results Laboratory Results: 08/28/20 05:35 08/28/20 05:35 08/28/20 08/28/20 05:35 05:35 WBC 14.5 H RBC 3.91 Hgb 11.5 L Hct 35.1 L MCV 90 MCH 29.4 MCHC 32.7 RDW 13.6 Plt Count 256 Seg Neutrophils % 74.3 Sodium 134.4 L Potassium 3.6 Chloride 99 Carbon Dioxide 27 Anion Gap 8 BUN 19 Creatinine 0.68 Est GFR ( Amer) > 60 Glucose 115 H Calcium 8.4 Impressions: Pelvis CT 08/26/20 14:21 IMPRESSION: Acute comminuted right proximal femoral intertrochanteric fracture with mild varus angulation. No other fractures of the visualized bony pelvis or left hip. Fluoroscopy 08/27/20 00:00 IMPRESSION: IMAGE(S) OBTAINED DURING PROCEDURE. Hip/Pelvis X-Ray 08/27/20 00:00 IMPRESSION: IMAGE(S) OBTAINED DURING PROCEDURE. Assessment and Plan - Diagnosis (1) Acute right hip pain Is this a current diagnosis for this admission?: Yes (2) COPD (chronic obstructive pulmonary disease) Is this a current diagnosis for this admission?: Yes (3) Chronic diastolic HF (heart failure) Is this a current diagnosis for this admission?: Yes (4) Closed right hip fracture Qualifiers: Encounter type: initial encounter Qualified Code(s): S72.001A - Fracture of unspecified part of neck of right femur, initial encounter for closed fracture Is this a current diagnosis for this admission?: Yes (5) Coronary artery disease Is this a current diagnosis for this admission?: Yes (6) Displaced fracture of base of neck of right femur, initial encounter for closed fracture Is this a current diagnosis for this admission?: Yes (7) DNR (do not resuscitate) Is this a current diagnosis for this admission?: Yes (8) Tobacco dependence Is this a current diagnosis for this admission?: Yes - Plan Summary Summary: (1) Closed right hip fracture Continue pain medications as needed. Status post ORIF today. VT prophylaxis per orthopedic surgery. (2) Chronic diastolic HF (heart failure) Continue Lasix. (3) Hypertension Continue home medications. Monitor blood pressure. (5) Coronary artery disease No exacerbation. Continue home medications. (6) Pacemaker - Time Time Spent with patient: 15-24 minutes Medications reviewed and adjusted accordingly: Yes Anticipated Discharge Disposition: Long-Term Facility Anticipated Discharge Timeframe: within 24 hours - Inpatient Certification Based on my medical assessment, after consideration of the patient's comorbidities, presenting symptoms, or acuity I expect that the services needed warrant INPATIENT care.: Yes I certify that my determination is in accordance with my understanding of Medicare's requirements for reasonable and necessary INPATIENT services [42 CFR 412.3e].: Yes Medical Necessity: Significant Comorbidiites Make Outpatient Treatment Too Risky, Need Close Monitoring Due to Risk of Patient Decompensation, Risk of Complication if Not Cared For in Hospital, Risk of Diagnosis Which Will Require Inpatient Eval/Care/Monitoring
[2020-08-28] MEDS: ROPINIROLE HCL 0.25 MG TABLET PO SCH (23:04)
[2020-08-28] MEDS: ATORVASTATIN CALCIUM 10 MG TABLET PO SCH (23:04)
[2020-08-29] MEDS: MORPHINE SULFATE 10 MG/ML INJ IV PRN (00:50)
[2020-08-29] MEDS: CEFAZOLIN SODIUM 2 GM in DEXTROSE 5%-WATER 100 ML IV SCH ×3 (01:00→17:26)
[2020-08-29 08:54] LABS: ABSOLUTE BASOPHILS # (AUTO) 0.1 10^3/uL (0.0-0.2); ABSOLUTE EOSINOPHILS # (AUTO) 0.1 10^3/uL (0.0-0.6); ABSOLUTE LYMPHOCYTES (AUTO) 1.5 10^3/uL (0.5-4.7); ABSOLUTE MONOCYTES (AUTO) 2.8 10^3/uL (0.1-1.4); ABSOLUTE NEUT (AUTO) 9.9 10^3/uL (1.7-8.2); BASOPHILS % (AUTO) 0.9 % (0-2); EOSINOPHILS % (AUTO) 0.7 % (0-6); HEMATOCRIT 33.7 % (36.0-47.0); HEMOGLOBIN 11.5 g/dL (12.0-15.5); LYMPHOCYTES % (AUTO) 10.2 % (13-45); MEAN CORPUSCULAR HEMOGLOBIN 30.6 pg (27.0-33.4); MEAN CORPUSCULAR HGB CONC 34.1 g/dL (32.0-36.0); MEAN CORPUSCULAR VOLUME 90 fl (80-97); MONOCYTES % (AUTO) 19.3 % (3-13); PLATELET COUNT 258 10^3/uL (150-450); RED BLOOD COUNT 3.76 10^6/uL (3.72-5.28); RED CELL DISTRIBUTION WIDTH 13.7 % (11.5-14.0); SEGMENTED NEUTROPHILS % (AUTO) 68.9 % (42-78); TOTAL CELLS COUNTED % (AUTO) 100 %; WHITE BLOOD COUNT 14.3 10^3/uL (4.0-10.5)
[2020-08-29] MEDS: MULTIVITAMIN TABLET PO SCH (09:35)
[2020-08-29] MEDS: ASPIRIN 325 MG TABLET PO SCH (09:35)
[2020-08-29] MEDS: SERTRALINE HCL 50 MG TABLET PO SCH (09:35)
[2020-08-29] MEDS: ASCORBIC ACID 500 MG TABLET PO SCH (09:35)
[2020-08-29] MEDS: ENOXAPARIN SODIUM INJ 40 MG/0.4 ML DISP.SYRIN SUBCUT SCH (09:36)
[2020-08-29] MEDS: HYDROCHLOROTHIAZIDE 12.5 MG TABLET PO SCH (09:36)
[2020-08-29] MEDS: FLUTICASONE/UMECLIDIN/VILANTER 100-62.5-25 MCG/DOSE IH SCH (09:36)
[2020-08-29] MEDS: AMLODIPINE BESYLATE 10 MG TABLET PO SCH (09:36)
[2020-08-29] MEDS: LOSARTAN POTASSIUM 50 MG TABLET PO SCH (09:36)
--- NOTE | 2020-08-29 13:35 | PDOC TRANSFER SUMMARY ---
Impression - Admit/DC Date/PCP Admission Date/Primary Care Provider: 08/26/20 14:28 JONNY RUSSELL MD Discharge Date: 08/29/20 - Discharge Diagnosis (1) Acute right hip pain Is this a current diagnosis for this admission?: Yes (2) COPD (chronic obstructive pulmonary disease) Is this a current diagnosis for this admission?: Yes (3) Chronic diastolic HF (heart failure) Is this a current diagnosis for this admission?: Yes (4) Closed right hip fracture Is this a current diagnosis for this admission?: Yes (5) Coronary artery disease Is this a current diagnosis for this admission?: Yes (6) Displaced fracture of base of neck of right femur, initial encounter for closed fracture Is this a current diagnosis for this admission?: Yes (7) DNR (do not resuscitate) Is this a current diagnosis for this admission?: Yes (8) Tobacco dependence Is this a current diagnosis for this admission?: Yes - Assessment Summary: Per Previous Physician: "JAIR WHITE is a 89 year old female who has multiple medical problems. She lives in [facility]. Patient sustained a mechanical fall and suffered severe right hip pain. She was transferred to the emergency room. Work-up shows right intertrochanteric femur fracture. Orthopedic surgeon consulted and recommended admission for surgical intervention. History: 08/27/2020: Patient is status post ORIF of the right hip." 08/28/2020 Patient seems to be comfortable today with her pain well controlled. She is working with physical therapy and will need to go to rehab at discharge. She has no new complaints today. She will be discharged to SNF tomorrow. She is on Lovenox for DVT prophylaxis 08/29 DC to SNF FU with PCP and orthopedics (1) Closed right hip fracture Continue pain medications as needed. Status post ORIF. VT prophylaxis with lovenox. Aspirin is inadequate for DVT ppx in the setting of hip fracture and immobility. 28 day duration DC to SNF for rehab Percocet prn Rx given for #12 tabs and NO REFILLS (2) Chronic diastolic HF (heart failure) Continue Lasix, increased dose with improvement in O2 requirements Requires supplemental O2 at 2L on exertion (3) Hypertension Continue home medications. Monitor blood pressure. Controlled (5) Coronary artery disease No exacerbation. Continue home medications. (6) Pacemaker - Additional Information Resuscitation Status: Full Code Discharge Diet: Cardiac Referrals: [facility] [Outside] MIKAEL BEAUCHAMP MD [ACTIVE STAFF] - 09/19/20 11:00 am (S/P 08/27 RIGHT HIP. OFFICE IS CLOSED ON MONDAYS) Prescriptions: Oxycodone HCl/Acetaminophen [Percocet 5-325 mg Tablet] 1 tab PO Q8HP PRN #12 tab PRN Reason: For Pain Scale 3-5 Home Medications: Amlodipine Besylate [Norvasc 10 mg Tablet] 10 mg PO DAILY 08/26/20 Ascorbic Acid [Vitamin C 500 mg Tablet] 500 mg PO DAILY 08/26/20 Atorvastatin Calcium [Lipitor 10 mg Tablet] 10 mg PO QHS 08/26/20 Diclofenac Sodium 1 gm TOP TIDP PRN 08/26/20 Diclofenac Sodium 1 gm TP QIDP PRN 08/26/20 Fluticasone/Umeclidin/Vilanter [Trelegy 100-62.5-25 Mcg Ellipta 14 Dose/Dpi] 1 each IH DAILY 08/26/20 Furosemide [Lasix 20 mg Tablet] 20 mg PO QAM 08/26/20 Lorazepam [Ativan 0.5 mg Tablet] 0.5 mg PO Q8HP PRN 08/26/20 Multivitamin [Tab-A-Barry (Multiple Vitamin) Tablet] 1 tab PO DAILY 08/26/20 Ropinirole HCl [Requip 0.25 mg Tablet] 0.5 mg PO QHS 08/26/20 Sertraline HCl [Zoloft 50 mg Tablet] 75 mg PO DAILY 08/26/20 Telmisartan/Hydrochlorothiazid [Telmisartan-Hctz 40-12.5 mg Tb] 1 each PO DAILY 08/26/20 Aspirin [Ecotrin 81 mg EC Tablet] 81 mg PO DAILY #0 08/28/20 Enoxaparin Sodium [Lovenox Inj 40 mg/0.4 ml Disp.syrin] 40 mg SUBCUT DAILY 28 Days disp.syrin 08/28/20 Nicotine [Nicoderm 21 mg/24 Hr Transderm Patch] 1 each TD QPM #0 patch.td24 08/28/20 Oxycodone HCl/Acetaminophen [Percocet 5-325 mg Tablet] 1 tab PO Q8HP PRN #12 tab 08/29/20 History of Present Illiness History of Present Illness: JAIR WHITE is a 89 year old female Physical Exam Vital Signs: Temp Pulse Resp BP Pulse Ox 98.0 F 73 18 122/41 L 92 08/29/20 08:49 08/29/20 07:54 08/29/20 07:54 08/29/20 07:54 08/29/20 07:54 Intake & Output 08/28/20 08/29/20 08/30/20 06:59 06:59 06:59 Intake Total 840 480 Output Total 1250 200 Balance -410 280 Weight 39.1 kg 39.1 kg Exam: General appearance: PRESENT: no acute distress, frail and chronically ill- appearing, states she wants to go to rehab Head exam: PRESENT: atraumatic, normocephalic Eye exam: PRESENT: conjunctiva pink. ABSENT: scleral icterus Mouth exam: PRESENT: moist Respiratory exam: PRESENT: clear to auscultation jerry. ABSENT: rales, rhonchi, wheezes Cardiovascular exam: PRESENT: RRR. ABSENT: diastolic murmur, rubs, systolic murmur GI/Abdominal exam: PRESENT: normal bowel sounds, soft. ABSENT: distended, guarding, mass, organolmegaly, rebound, tenderness Neurological exam: PRESENT: alert, awake, oriented to person Psychiatric exam: PRESENT: appropriate affect, normal mood Skin exam: PRESENT: dry, intact, warm Musculoskeletal: Right hip surgical site very mildly tender, mild edema Results Laboratory Results: WBC 14.3 10^3/uL (4.0-10.5) H 08/29/20 08:30 RBC 3.76 10^6/uL (3.72-5.28) 08/29/20 08:30 Hgb 11.5 g/dL (12.0-15.5) L 08/29/20 08:30 Hct 33.7 % (36.0-47.0) L 08/29/20 08:30 MCV 90 fl (80-97) 08/29/20 08:30 MCH 30.6 pg (27.0-33.4) 08/29/20 08:30 MCHC 34.1 g/dL (32.0-36.0) 08/29/20 08:30 RDW 13.7 % (11.5-14.0) 08/29/20 08:30 Plt Count 258 10^3/uL (150-450) 08/29/20 08:30 Lymph % (Auto) 10.2 % (13-45) L 08/29/20 08:30 Carver % (Auto) 19.3 % (3-13) H 08/29/20 08:30 Eos % (Auto) 0.7 % (0-6) 08/29/20 08:30 Baso % (Auto) 0.9 % (0-2) 08/29/20 08:30 Absolute Neuts (auto) 9.9 10^3/uL (1.7-8.2) H 08/29/20 08:30 Absolute Lymphs (auto) 1.5 10^3/uL (0.5-4.7) 08/29/20 08:30 Absolute Monos (auto) 2.8 10^3/uL (0.1-1.4) H 08/29/20 08:30 Absolute Eos (auto) 0.1 10^3/uL (0.0-0.6) 08/29/20 08:30 Absolute Basos (auto) 0.1 10^3/uL (0.0-0.2) 08/29/20 08:30 Seg Neutrophils % 68.9 % (42-78) 08/29/20 08:30 Sodium 134.4 mmol/L (137-145) L 08/28/20 05:35 Potassium 3.6 mmol/L (3.6-5.0) 08/28/20 05:35 Chloride 99 mmol/L (98-107) 08/28/20 05:35 Carbon Dioxide 27 mmol/L (22-30) 08/28/20 05:35 Anion Gap 8 (5-19) 08/28/20 05:35 BUN 19 mg/dL (7-20) 08/28/20 05:35 Creatinine 0.68 mg/dL (0.52-1.25) 08/28/20 05:35 Est GFR ( Amer) > 60 (>60) 08/28/20 05:35 Est GFR (MDRD) Non-Af > 60 (>60) 08/28/20 05:35 Glucose 115 mg/dL (75-110) H 08/28/20 05:35 Calcium 8.4 mg/dL (8.4-10.2) 08/28/20 05:35 Influenza A (RT-PCR) NEGATIVE (NEGATIVE) 08/26/20 11:25 Influenza B (RT-PCR) NEGATIVE (NEGATIVE) 08/26/20 11:25 RSV (RT-PCR) NEGATIVE (NEGATIVE) 08/26/20 11:25 SARS-CoV-2 Rap RNA(RT-PCR) NEGATIVE (NEGATIVE) 08/26/20 11:25 Blood Type O POSITIVE 08/26/20 11:25 Antibody Screen NEGATIVE 08/26/20 11:25 Impressions: Hip/Pelvis X-Ray 08/26/20 00:00 IMPRESSION: Possible impacted subcapital fracture right hip, and superior pubic ramus fracture. Pelvis CT 08/26/20 14:21 IMPRESSION: Acute comminuted right proximal femoral intertrochanteric fracture with mild varus angulation. No other fractures of the visualized bony pelvis or left hip. Fluoroscopy 08/27/20 00:00 IMPRESSION: IMAGE(S) OBTAINED DURING PROCEDURE. Hip/Pelvis X-Ray 08/27/20 00:00 IMPRESSION: IMAGE(S) OBTAINED DURING PROCEDURE. Plan Plan of Treatment: Follow-up with PCP Follow-up with orthopedic surgery Time Spent: Greater than 30 Minutes Stroke Is this a Stroke Patient?: No Acute Heart Failure Is this a Heart Failure Patient?: Yes Documentation of LVEF assessment?: Yes LVEF: LVEF Greater Than 40% Anticoagulant Therapy: Yes
[2020-08-29] MEDS: TRAMADOL HCL 50 MG TABLET PO PRN (16:03)
[2020-08-29] MEDS: NICOTINE 21 MG/24 HR PATCH.TD24 TD SCH (17:25)
[2020-08-29] MEDS: ATORVASTATIN CALCIUM 10 MG TABLET PO SCH (23:31)
[2020-08-29] MEDS: ROPINIROLE HCL 0.25 MG TABLET PO SCH (23:31)
[2020-08-30] MEDS ORDERED: CEFAZOLIN INJ 1 GM VIAL ONE (02:35)
[2020-08-30] MEDS: CEFAZOLIN SODIUM 2 GM in DEXTROSE 5%-WATER 100 ML IV SCH (02:49)
[2020-08-30] MEDS: TRAMADOL HCL 50 MG TABLET PO PRN ×2 (06:09→18:27)
[2020-08-30 07:11] LABS: ABSOLUTE BASOPHILS # (AUTO) 0.1 10^3/uL (0.0-0.2); ABSOLUTE EOSINOPHILS # (AUTO) 0.1 10^3/uL (0.0-0.6); ABSOLUTE LYMPHOCYTES (AUTO) 1.4 10^3/uL (0.5-4.7); ABSOLUTE MONOCYTES (AUTO) 2.7 10^3/uL (0.1-1.4); ABSOLUTE NEUT (AUTO) 12.7 10^3/uL (1.7-8.2); BASOPHILS % (AUTO) 0.6 % (0-2); EOSINOPHILS % (AUTO) 0.7 % (0-6); HEMATOCRIT 35.6 % (36.0-47.0); HEMOGLOBIN 11.9 g/dL (12.0-15.5); MEAN CORPUSCULAR HEMOGLOBIN 29.2 pg (27.0-33.4); MEAN CORPUSCULAR HGB CONC 33.3 g/dL (32.0-36.0); MEAN CORPUSCULAR VOLUME 88 fl (80-97); MONOCYTES % (AUTO) 15.9 % (3-13); PLATELET COUNT 292 10^3/uL (150-450); RED BLOOD COUNT 4.06 10^6/uL (3.72-5.28); RED CELL DISTRIBUTION WIDTH 13.8 % (11.5-14.0); SEGMENTED NEUTROPHILS % (AUTO) 74.8 % (42-78); TOTAL CELLS COUNTED % (AUTO) 100 %; WHITE BLOOD COUNT 16.9 10^3/uL (4.0-10.5)
[2020-08-30] MEDS: MULTIVITAMIN TABLET PO SCH (09:42)
[2020-08-30] MEDS: HYDROCHLOROTHIAZIDE 12.5 MG TABLET PO SCH (09:42)
[2020-08-30] MEDS: SERTRALINE HCL 50 MG TABLET PO SCH (09:42)
[2020-08-30] MEDS: AMLODIPINE BESYLATE 10 MG TABLET PO SCH (09:42)
[2020-08-30] MEDS: ASPIRIN 325 MG TABLET PO SCH (09:46)
[2020-08-30] MEDS: LOSARTAN POTASSIUM 50 MG TABLET PO SCH (09:47)
[2020-08-30] MEDS: ASCORBIC ACID 500 MG TABLET PO SCH (09:47)
[2020-08-30] MEDS: ENOXAPARIN SODIUM INJ 40 MG/0.4 ML DISP.SYRIN SUBCUT SCH (09:48)
[2020-08-30] MEDS: MORPHINE SULFATE 10 MG/ML INJ IV PRN ×2 (09:55→18:35)
[2020-08-30] MEDS: FLUTICASONE/UMECLIDIN/VILANTER 100-62.5-25 MCG/DOSE IH SCH (10:02)
--- NOTE | 2020-08-30 14:10 | PDOC PROGRESS REPORT ---
Subjective Subjective:: Per Previous Physician: "JAIR WHITE is a 89 year old female who has multiple medical problems. She lives in [facility]. Patient sustained a mechanical fall and suffered severe right hip pain. She was transferred to the emergency room. Work-up shows right intertrochanteric femur fracture. Orthopedic surgeon consulted and recommended admission for surgical intervention. History: 08/27/2020: Patient is status post ORIF of the right hip." 08/28/2020 Patient seems to be comfortable today with her pain well controlled. She is working with physical therapy and will need to go to rehab at discharge. She has no new complaints today. She will be discharged to SNF tomorrow. She is on Lovenox for DVT prophylaxis 08/30/2020 Patient is discharged and she can go to her rehab facility whenever they have a bed for her. She has no new complaints today. She is more talkative and seems to be a bit more alert today. She denies any significant pain in her right hip at least while she is sitting still. Reason For Visit: HIP FIX Physical Exam Vital Signs: Temp Pulse Resp BP Pulse Ox 97.4 F 80 16 131/42 H 94 08/30/20 11:41 08/30/20 11:41 08/30/20 11:41 08/30/20 11:41 08/30/20 11:41 Intake & Output 08/29/20 08/30/20 08/31/20 06:59 06:59 06:59 Intake Total 480 320 120 Output Total 200 Balance 280 320 120 Weight 39.1 kg 42.2 kg Exam: General appearance: PRESENT: no acute distress, frail and chronically ill- appearing, states she is doing fine today and agrees to go to rehab Head exam: PRESENT: atraumatic, normocephalic Eye exam: PRESENT: conjunctiva pink. ABSENT: scleral icterus Mouth exam: PRESENT: moist Respiratory exam: PRESENT: clear to auscultation jerry. ABSENT: rales, rhonchi, wheezes Cardiovascular exam: PRESENT: RRR. ABSENT: diastolic murmur, rubs, systolic murmur GI/Abdominal exam: PRESENT: normal bowel sounds, soft. ABSENT: distended, guarding, mass, organolmegaly, rebound, tenderness Neurological exam: PRESENT: alert, awake, oriented to person Psychiatric exam: PRESENT: appropriate affect, normal mood Skin exam: PRESENT: dry, intact, warm Musculoskeletal: Right hip surgical site very mildly tender, mild edema Results Laboratory Results: 08/30/20 06:50 08/28/20 05:35 08/30/20 06:50 WBC 16.9 H RBC 4.06 Hgb 11.9 L Hct 35.6 L MCV 88 MCH 29.2 MCHC 33.3 RDW 13.8 Plt Count 292 Seg Neutrophils % 74.8 Impressions: Pelvis CT 08/26/20 14:21 IMPRESSION: Acute comminuted right proximal femoral intertrochanteric fracture with mild varus angulation. No other fractures of the visualized bony pelvis or left hip. Fluoroscopy 08/27/20 00:00 IMPRESSION: IMAGE(S) OBTAINED DURING PROCEDURE. Hip/Pelvis X-Ray 08/27/20 00:00 IMPRESSION: IMAGE(S) OBTAINED DURING PROCEDURE. Assessment and Plan - Diagnosis (1) Acute right hip pain Is this a current diagnosis for this admission?: Yes (2) COPD (chronic obstructive pulmonary disease) Is this a current diagnosis for this admission?: Yes (3) Chronic diastolic HF (heart failure) Is this a current diagnosis for this admission?: Yes (4) Closed right hip fracture Qualifiers: Encounter type: initial encounter Qualified Code(s): S72.001A - Fracture of unspecified part of neck of right femur, initial encounter for closed fracture Is this a current diagnosis for this admission?: Yes (5) Coronary artery disease Is this a current diagnosis for this admission?: Yes (6) Displaced fracture of base of neck of right femur, initial encounter for closed fracture Is this a current diagnosis for this admission?: Yes (7) DNR (do not resuscitate) Is this a current diagnosis for this admission?: Yes (8) Tobacco dependence Is this a current diagnosis for this admission?: Yes - Plan Summary Summary: Per Previous Physician: "JAIR WHITE is a 89 year old female who has multiple medical problems. She lives in [facility]. Patient sustained a mechanical fall and suffered severe right hip pain. She was transferred to the emergency room. Work-up shows right intertrochanteric femur fracture. Orthopedic surgeon consulted and recommended admission for surgical intervention. History: 08/27/2020: Patient is status post ORIF of the right hip." 08/28/2020 Patient seems to be comfortable today with her pain well controlled. She is working with physical therapy and will need to go to rehab at discharge. She has no new complaints today. She will be discharged to SNF tomorrow. She is on Lovenox for DVT prophylaxis 08/29 DC to SNF FU with PCP and orthopedics 08/30 Waiting on SNF to take patient (1) Closed right hip fracture Continue pain medications as needed. Status post ORIF. VT prophylaxis with lovenox. Aspirin is inadequate for DVT ppx in the setting of hip fracture and immobility. 28 day duration DC to SNF for rehab Percocet prn Rx given for #12 tabs and NO REFILLS (2) Chronic diastolic HF (heart failure) Continue Lasix, increased dose with improvement in O2 requirements Requires supplemental O2 at 2L on exertion (3) Hypertension Continue home medications. Monitor blood pressure. Controlled (5) Coronary artery disease No exacerbation. Continue home medications. (6) Pacemaker - Time Time Spent with patient: 15-24 minutes Medications reviewed and adjusted accordingly: Yes Anticipated Discharge Disposition: Half-Way Facility Anticipated Discharge Timeframe: within 24 hours - Inpatient Certification Based on my medical assessment, after consideration of the patient's comorbidities, presenting symptoms, or acuity I expect that the services needed warrant INPATIENT care.: Yes I certify that my determination is in accordance with my understanding of Medicare's requirements for reasonable and necessary INPATIENT services [42 CFR 412.3e].: Yes Medical Necessity: Significant Comorbidiites Make Outpatient Treatment Too Risky, Need Close Monitoring Due to Risk of Patient Decompensation, Risk of Complication if Not Cared For in Hospital, Risk of Diagnosis Which Will Require Inpatient Eval/Care/Monitoring
[2020-08-30] MEDS: NICOTINE 21 MG/24 HR PATCH.TD24 TD SCH (18:51)
[2020-08-30 19:57] VITALS: BP 114/52
== END 2020-08-30 20:00 | DRG 956 ==
LOC: ER 09:25 → EH 14:28 → 4W 16:13
PROVIDERS: ADMIT Family Medicine; ATTEND Internal Medicine
PROC: 0QBB0ZX Excision of Right Lower Femur, Open Approach, Diagnostic (ICD-10-PCS; 2020-08-27)
PROC: 0QS606Z Reposition Right Upper Femur with Intramedullary Internal Fixation Device, Open Approach (ICD-10-PCS; principal; 2020-08-27 08:00)
DX: S72.011A Unspecified intracapsular fracture of right femur, initial encounter for closed fracture (principal); S32.591A Other specified fracture of right pubis, initial encounter for closed fracture; I50.32 Chronic diastolic (congestive) heart failure; W19.XXXA Unspecified fall, initial encounter; Y92.129 Unspecified place in nursing home as the place of occurrence of the external cause; I11.0 Hypertensive heart disease with heart failure; I25.10 Atherosclerotic heart disease of native coronary artery without angina pectoris; F03.90 Unspecified dementia, unspecified severity, without behavioral disturbance, psychotic disturbance, mood disturbance, and anxiety; Z66 Do not resuscitate; F17.200 Nicotine dependence, unspecified, uncomplicated; Z20.828 Contact with and (suspected) exposure to other viral communicable diseases; Z79.899 Other long term (current) drug therapy; Z95.0 Presence of cardiac pacemaker; Z88.0 Allergy status to penicillin; Z88.2 Allergy status to sulfonamides; Z88.7 Allergy status to serum and vaccine
CPT/HCPCS: 01230; 36415; 72192; 80048; 85025; 85027; 86850; 86900; 86901; 88304; 88305; 88311; 88341; 88342; 99140; 0241U; C1713; C1769; C9803; J0690; J1650; J2250; J2270; J2405; J2704; J3010; J3490; J7030; J7060